=== PATIENT | female | born 1955 | race Native Hawaiian/Other Pacific Islander ===

== ENCOUNTER → 2016-08-23 | Outpatient (CLI) | payer OTHER ==
[~2016-08-23] MED LIST: IOPAMIDOL (ISOVUE-300) 100 ML BTL IV ONE
== END ==
LOC: FIMAGING 13:17
PROVIDERS: ATTEND Internal Medicine Hematology & Oncology
DX: R91.8 Other nonspecific abnormal finding of lung field (principal); S32.010A Wedge compression fracture of first lumbar vertebra, initial encounter for closed fracture; C79.51 Secondary malignant neoplasm of bone; C54.1 Malignant neoplasm of endometrium
CPT/HCPCS: Q9967

== ENCOUNTER → 2016-09-13 | Outpatient (CLI) | payer OTHER ==
[~2016-09-13] MED LIST changes: +GADOBUTROL 10 ML VIAL IVP ONE; -IOPAMIDOL (ISOVUE-300) 100 ML BTL IV ONE
== END ==
LOC: FIMAGING 14:11
PROVIDERS: ATTEND Internal Medicine Hematology & Oncology
DX: M48.56XA Collapsed vertebra, not elsewhere classified, lumbar region, initial encounter for fracture (principal); M48.06 Spinal stenosis, lumbar region; C54.1 Malignant neoplasm of endometrium
CPT/HCPCS: A9585

== ENCOUNTER 2016-09-16 09:32 | Inpatient (IN) | payer OTHER ==
[2016-09-16] MEDS ORDERED: DEXAMETHASONE 10 MG/ML VIAL IVP ONE (09:43)
[2016-09-16] MEDS ORDERED: ONDANSETRON 4 MG/2 ML VIAL ONE (09:51)
[2016-09-16] MEDS ORDERED: HYDROmorphONE/DILAUDID 1 MG/ML SYR IVP ONE ×2 (09:54→19:00)
[2016-09-16] MEDS ORDERED: ONDANSETRON 4 MG/2 ML VIAL IVP ONE (09:54)
--- NOTE | 2016-09-16 09:58 | EDPHY ---
HPI/HX/ROS/PE/MDM Narrative: CHIEF COMPLAINT: Severe back pain HPI: The patient is a 61-year-old female with a history of metastatic uterine cancer with known metastatic lesions throughout the spine. Her primary issue has been at an L1 compression fracture that is pathologic with some retropulsion of bone. Her goal has been to treat this nonsurgically. Last night she developed severe intractable pain in this area with radiation to her right hip. She denies bowel or bladder incontinence and denies new motor or sensory changes. She contacted her oncologist who sent her to the ER for treatment and admission. REVIEW OF SYSTEMS: Aside from elements discussed in the HPI, a comprehensive 10-point review of systems was reviewed and is negative. PMH: Includes metastatic uterine cancer with pathologic spine fractures. SOCIAL HISTORY: . Denies alcohol or drug abuse. PHYSICAL EXAM: General:Patient is alert, appears in significant pain. She appears somewhat chronically ill. ENT:Eyes are normal to inspection. ENT inspection normal. Neck: Normal inspection. Full range of motion. Respiratory:No respiratory distress. Breath sounds normal bilaterally. Cardiovascular: Regular rate and rhythm. Strong peripheral pulses. Normal cap refill. Abdomen:The abdomen is nontender to palpation. There are no peritoneal signs. There are normal bowel sounds. Back: Normal to inspection. No tenderness to palpation. Skin: Normal color. No rash. Warm and dry. Extremities: Normal appearance. Full range of motion. Neuro: Oriented x3. Normal motor function. Normal sensory function. 5/5 strength to bilateral lower extremities including dorsiflexion and plantar flexion. ED Course: Consulted Dr. Humaira Morocho from Neurosurgery at 10:00 a.m.. MDM: This patient presents with severe back pain in the setting of known pathologic fracture/metastasis. She currently has no incontinence and no saddle anesthesia so I doubt cauda equina syndrome. She has been reluctant to pursue surgical treatment. Due to debilitating pain, she will require admission for pain control and NSG evaluation. General Time Seen by Provider: 09/16/16 09:40 Initial Vital Signs: Initial Vital Signs Temperature (C) 36.6 C 09/16/16 09:37 Heart Rate 79 09/16/16 09:37 Respiratory Rate 20 09/16/16 09:37 Blood Pressure 165/95 H 09/16/16 09:37 O2 Sat (%) 99 09/16/16 09:37 O2 Delivery Mode Nasal Cannula O2 (L/minute) 2 Allergies/Adverse Reactions: amoxicillin trihydrate [From Augmentin] Allergy (Intermediate, Verified 09:33) BLEEDING, HIVES morphine Allergy (Intermediate, Verified 09/16/16 09:33) dyspnea, flushing potassium clavulanate [From Augmentin] Allergy (Intermediate, Verified 09/16/16 09:33) BLEEDING, HIVES lactose Allergy (Mild, Verified 09/16/16 09:33) GI UPSET acetaminophen [From Percocet] Allergy (Verified 09/16/16 09:33) erythromycin base [Erythromycin Base] Allergy (Verified 09/16/16 09:33) oxycodone Allergy (Verified 09/16/16 09:33) oxycodone HCl [From Percocet] Allergy (Verified 09/16/16 09:33) Penicillins Allergy (Verified 09/16/16 09:36) Sulfa (Sulfonamide Antibiotics) Allergy (Verified 09/16/16 09:36) TAPE Allergy (Intermediate, Uncoded 04/09/14 13:10) BLISTERS BETADINE Allergy (Mild, Uncoded 04/09/14 13:10) Rash EGGPLANT Allergy (Mild, Uncoded 04/09/14 13:10) Hives IODINE CONTRAST Allergy (Mild, Uncoded 04/09/14 13:10) HIVES, ITCHY SHRIMP Allergy (Mild, Uncoded 04/09/14 13:10) Hives morph Allergy (Uncoded 06/05/14 13:45) morphine Allergy (Uncoded 06/05/14 13:45) Home Medications: Medication Instructions Recorded Acetaminophen [Tylenol ES 500 mg 500 mg PO Q6 PRN 09/16/16 (*)] Gabapentin [Neurontin 300 MG (*)] 300 mg PO BID 09/16/16 Hydrocodone/Acetaminophen [Wilton 2 each PO Q4 PRN 09/16/16 5/325 (*)] Levalbuterol 1.25 mg [Xopenex 1.25 mg IH DAILY PRN 09/16/16 1.25MG Neb (*)] Losartan Potassium [Cozaar] 100 mg PO HS 09/16/16 Metoprolol Succinate Xr [Toprol Xl 100 mg PO DAILY 09/16/16 100 mg (*)] diphenhydrAMINE HCL [Diphen] 25 - 50 mg PO HS 09/16/16 Departure - Departure Disposition: [facility] Inpatient Acute Clinical Impression: Back pain, Uterine cancer Condition: Fair
[2016-09-16 10:17] LABS: % IMMATURE GRANULYOCYTES 0.7 % (0.0-1.1); ABSOLUTE IMMATURE GRANULOCYTES 0.14 10^3/uL (0.00-0.10); ADD DIFF? NO; ADD MORPH? NO; ADD SCAN? NO; ATYPICAL LYMPHOCYTE FLAG 20 (0-99); FRAGMENT RBC FLAG 0 (0-99); HEMOGLOBIN 11.1 g/dL (12.6-16.3); LEFT SHIFT FLG 0 (0-99); LIPEMIA HEMOLYSIS FLAG 80 (0-99); MEAN CELL HEMOGLOBIN 30.4 pg (27.9-34.1); MEAN CELL HEMOGLOBIN CONCENTR. 32.6 g/dL (32.4-36.7); MEAN CELL VOLUME 93.2 fL (81.5-99.8); MEAN PLATELET VOLUME 8.7 fL (8.7-11.7); PLATELET CLUMPS FLAG 0 (0-99); PLATELET COUNT 381 10^3/uL (150-400); RED BLOOD CELL COUNT 3.65 10^6/uL (4.18-5.33); RED CELL DISTRIBUTION WIDTH 16.1 % (11.5-15.2)
[2016-09-16 10:57] LABS: CALCIUM 9.3 mg/dL (8.5-10.4); CARBON DIOXIDE 29 mEq/l (22-31); CHLORIDE 99 mEq/L (97-110); CREATININE 0.6 mg/dL (0.6-1.0); GLOMERULAR FILTRATION RATE > 60; GLUCOSE 154 mg/dL (70-100); SODIUM 140 mEq/L (134-144)
[2016-09-16 11:14] LABS: ANION GAP 12 mEq/L (8-16); POTASSIUM 3.3 mEq/L (3.5-5.2)
[2016-09-16] MEDS ORDERED: ONDANSETRON DISINTEGRATING 4 MG TAB PO PRN (11:42)
--- NOTE | 2016-09-16 11:52 | GCON ---
[f rep st] CONSULTATION DATE OF CONSULTATION: 09/16/2016 TIME OF CONSULTATION: 10:30 a.m. HOSPITAL COURSE HISTORY AND MAJOR MEDICAL FINDINGS: The patient is a 61-year- old female with a history of metastatic uterine cancer and known metastatic lesions throughout her spine. She has a known prior L1 compression fracture and recently saw Dr. Giovani Barriga for evaluation. A brace was ordered as patient really wanted to move forward with conservative management. But when the pain got unbearable she presented to [facility] emergency room. She had a little bit of pain that radiates into her right hip but denies any other radicular pain, any numbness, tingling, pain or weakness in her lower legs. Denies any loss of bowel or bladder control. She has been taking Buckingham 10/325, as well as gabapentin at home and states that this is no longer helping. She does have a history of Tylenol toxicity causing tenderness. as well REVIEW OF SYSTEMS: Review of systems is negative other than what is stated in the HPI. Please see pertinent negatives and pertinent positives. PAST MEDICAL HISTORY: Significant for metastatic uterine cancer to both her lungs and her bones. History of hypertension. History of hyperthyroidism. History of migraines. PAST SURGICAL HISTORY: Significant for a total abdominal hysterectomy, history of a bilateral salpingo-oophorectomy. SOCIAL HISTORY: Patient does not smoke or drink any alcohol. 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 FAMILY HISTORY: Significant for 2 aunts with prior endometrial cancer and a grandfather and a cousin with colon cancer. HOME MEDICATIONS: Include Advair inhaler, Benadryl and Buckingham 10/325,. ALLERGIES: Significant for amoxicillin, morphine but she states she does tolerate Dilaudid, potassium, lactulose, acetaminophen has caused Tylenol toxicity before in the past so just tolerated at small quantities, erythromycin , oxycodone, penicillin, sulfa, tape, Betadine, eggplant, iodine, shrimp. PHYSICAL EXAM: VITAL SIGNS: Temp 36.6, heart rate is 79, respiratory rate is 20, BP is 165/95. She is 99% on room air. GENERAL: Patient in no acute distress. She is alert and oriented x3. Answers questions appropriately. Affect is appropriate for the given situation. NEUROLOGIC: Cranial nerves 2- 12 are grossly intact. EOMI and PERRLA. The patient is 5/5 and equal in her bilateral upper and bilateral lower extremities including her biceps, triceps, wrist flexors, extensors, interossei, intrinsic dock pumper, iliopsoas, hamstrings quadriceps, plantar flexion, dorsiflexion, EHL. Sensation is intact in bilateral upper and bilateral lower extremities. DIAGNOSTIC REVIEW: Review patient underwent a lumbar spine MRI on September 12 which demonstrated pathological compression fracture with retropulsion at L1. ASSESSMENT AND PLAN: The patient is a 61-year-old female, who has a known history of metastatic ovarian cancer who has an L1 compression fracture that has attempted conservative care but she continues to have worsening pain. At this point in time, the patient was seen both by Dr. Rouse and myself in the Emergency Room and we have recommended her undergoing a new MRI to look for other subtle fractures. She will be admitted to the medicine service for optimization of pain management, as patient wants to take the most conservative approach as possible. We do recommend increasing her pain management. The patient has tolerated Dilaudid okay in the past and p.o. Dilaudid may be a good option for her. Additionally she may be having increased muscle spasms and would recommend putting her on a muscle relaxant at this time. The patient is to be up and out of bed. Would recommend a brace. Would recommend [facility] [employer] to come see the patient as the patient states the brace is very cumbersome. If the patient has any change in neurologic or motor exam, please notify Neurosurgery. /[id number]/MODL MTDD
[2016-09-16] MEDS: HYDROmorphONE/DILAUDID 1 MG/ML SYR IVP PRN ×3 (11:56→23:29)
[2016-09-16] MEDS ORDERED: DEXAMETHASONE 4 MG/ML VIAL IVP SCH (12:00)
[2016-09-16] MEDS ORDERED: POTASSIUM CL 20 MEQ/15 ML UDCUP PO ONE ×2 (12:13→14:30)
[2016-09-16] MEDS: ONDANSETRON 4 MG/2 ML VIAL IVP PRN ×2 (12:45→18:25)
[2016-09-16] MEDS ORDERED: LEVALBUTEROL 1.25 MG/3 ML DEYVIAL IH PRN (14:23)
[2016-09-16 14:50] LABS: COLOR YELLOW; LEUKOCYTE ESTERASE,URINE 1+ (NEGATIVE); NITRITE,URINE NEGATIVE (NEGATIVE)
--- NOTE | 2016-09-16 14:59 | SOAPPROG ---
SOAP Progress Note Assessment/Plan: Assessment: 1.) Compression fracture at L1 with bony retropulsion causing compromise at Conus Medullaris with severe debilitating pain. Considering Neurosurgical procedure with L1 Kyphoplasty for pain relief and stabilization 2.) Endometrial Cancer - initial diagnosis- 02/03/2005, [id number], FIGA staging 1A , Endometriod Histology, R0 resection with ANAND, BSO and pelvic lymphadenectomy with curative intent, margins (+). Metastatic dis. (+)11/29- S/P 6 cycles Carbo/Paclitaxel, then single agent Paclitaxel 05/31-10/30. Doxil for dis. progression 04/01-08/03 Letrozole 08/31- Paclitaxel 08/04- Carboplatin 04/03 Doxorubicin 06/03- 09/02, last dose 08/22/16 Known skeletal and lung metastases. Paclitaxel related Peripheral Neuropathy Tx related Myelosuppression Plan: 1.) Bedrest 2.) Analgesia with short acting narcotic analgesics 3.) Steroids as adjunct for analgesic relief 4.) Appreciate Neurosurgery evaluation and management. See their Consultation today 5.) Follow VS+ Labs + sx. 6.) Pt contemplating Kyphoplasty at L1 with this admission. 7.) May need Rehab facility transfer to maximize recovery. 8.) PT/OT input when stable. 09/16/16 14:59 Subjective: Worsening back pain from L1 compression pathologic fracture, some relief with Dilaudid, as admitted from ER today. Objective: Looks fairly uncomfortable secondary to pain VSS, afebrile HEENT- anicteric, alopecia, PERRLA, EOMI, no oral lesions Neck- supple, no LN enlargement Chest- L mediport accessed/NT, clear bilat. anteriorly CVS- RSR, no extra HS ABD- soft, NT, no mass or HSM, BS+ EXT- no edema, normal muscle bulk, skin intact Vital Signs Temp Pulse Resp BP Pulse Ox 36.6 C 84 18 155/84 H 98 09/16/16 12:53 09/16/16 12:53 09/16/16 12:53 09/16/16 12:53 09/16/16 12:53 09/15/16 09/16/16 09/17/16 05:59 05:59 05:59 Output Total 500 Balance -500 ICD10 Worksheet Patient Problems: Problems Problem Status Onset Back pain Acute Uterine cancer Acute Acute respiratory failure Acute
[2016-09-16 15:10] LABS: MUCUS TRACE /lpf (NONE-1+); WBC,URINE 25-50 /hpf (0-3)
[2016-09-16 15:14] LABS: BACTERIA NONE SEEN /hpf (NONE SEEN)
[2016-09-16] MEDS: DEXAMETHASONE 4 MG/ML VIAL IVP SCH ×2 (15:23→22:04)
[2016-09-16] MEDS: METOPROLOL SUCCINATE XR 100 MG TAB PO SCH (15:23)
--- NOTE | 2016-09-16 15:48 | GHP ---
[f rep st] HISTORY AND PHYSICAL DATE OF ADMISSION: 09/16/2016 CHIEF COMPLAINT: Intractable back pain. HISTORY OF PRESENT ILLNESS: Patient is a 61-year-old female with history of metastatic uterine canc er with known spinal metastatic lesions. She recently underwent MRI that demonstrated a pathologic fracture at L1 with neural canal stenosis at the conus medullaris. Her ultimate goal was to treat t his nonsurgically with conservative measures. Last night, she developed severe intractable pain in the right lower back with radiation to her hip. She describes this as sharp and greater than 10. T he pain was so painful that she could not bear weight and had to have her fully assist her t o the restroom. She denies any focal weakness, bowel or bladder incontinence. No new numbness. She has been taking Vicodin 10/325 mg q.4 hours without relief of pain, thus, presented to the emerg ency room. She was also recently started on gabapentin twice a day for neuropathy. Denies fevers, chills, or sweats. No nausea, vomiting, or diarrhea. No dysuria. REVIEW OF SYSTEMS: I completed a 10-point review of systems, negative except as noted in HPI. PAST MEDICAL HISTORY: 1. Metastatic uterine cancer with metastatic disease to spine and lung. Initially diagnosed in 5, underwent hysterectomy. 2013 recurrence with metastases to the lungs. 2. Chronic hypoxemic respiratory failure. 3. Hypertension. 4. Prior hypothyroidism but has been off meds for greater than 10 years. PAST SURGICAL HISTORY: 1. Hysterectomy. 2. Lung biopsy. 3. Sinus surgery. SOCIAL HISTORY: Lives with her in [place]. Has been 30 years. Has 2 kids. No illicits, alcohol, or tobacco. FAMILY HISTORY: CAD, hypertension, diabetes, uterine cancer. MEDICATIONS: Tylenol p.r.n.; gabapentin 300 mg b.i.d.; Toprol-XL 100 mg daily; losartan 100 mg concepcion y; Xopenex 1.25 mg nebs p.r.n.; Fayette 10/325 p.o. q.4 hours p.r.n.; and Benadryl p.r.n. ALLERGIES: Amoxicillin, potassium clavulanate, lactose, Tylenol, erythromycin, oxycodone, penicilli n, sulfa, tape, Betadine, eggplant, iodine contrast, shrimp, morphine. PHYSICAL EXAMINATION: VITAL SIGNS: Temperature 36.6, blood pressure 155/84, heart rate 80s, respir ation 18, 98% on 2 L. GENERAL: Mildly distressed secondary to pain, fatigued. HEENT: PERRLA. EO MA. Moist mucous membranes. CV : Regular rate and rhythm. No murmurs, gallops, or rubs. LUNGS: Clear to auscultation bilaterally. ABDOMEN: Soft, nontender, nondistended. Positive bowel sounds . : No suprapubic or CVA tenderness. MUSCULOSKELETAL: 5/5 upper and lower extremity strength. Sensation is intact upper and lower extremities. She has some decreased sensation bottom of feet w hich she states is chronic. PSYCH: Alert and oriented x3, very pleasant. LABORATORY DATA: WBC 20, hemoglobin 11, hematocrit 34, platelets 381. Sodium 140, potassium 3.3, c hloride 99, carbon dioxide 29, BUN 10, creatinine 0.6. Glucose 154. Calcium 9.3. UA is pending. IMAGING DATA: 1. Chest x-ray, personally reviewed by me, no evidence of effusion or opacity. 2. Reviewed MRI, 09/13/16, shows severe pathologic compression of L1 associated with central neural canal stenosis at the level of the conus medullaris. This appears similar to prior scan on August 23. ASSESSMENT AND PLAN: 1. Acute pain crisis: Secondary to L1 pathologic fracture. Patient is followed by Neurosurgery an d had been recommended kyphoplasty, which she initially declined and wanted to trial conservative ma nagement. Patient was again seen by Neurosurgery at this time. Will treat acute pain with p.r.n. D ilaudid and dexamethasone. Patient would like more time to determine if she would like to proceed w ith kyphoplasty. 2. Accelerated hypertension: Pain is likely contributing. Will treat this, along with continuing her home medications. 3. Hypokalemia: Replete. 4. Peripheral neuropathy: Secondary to chemotherapy. Continue gabapentin. 5. Chronic hypoxemic respiratory failure: Secondary to pulmonary metastatic disease. No evidence of infection on x-ray. Patient is afebrile. 6. Leukocytosis: WBC is elevated to 20, suspect this is secondary inflammation plus/minus steroids . UA pending. Chest x-ray is negative for infection. She is afebrile. 7. Metastatic uterine cancer: Initially diagnosed in 2004 and underwent hysterectomy at [facility]. She had recurrence 2012 with metastatic disease to lung. She is currently followed by Dr. Foster and receiving doxorubicin, last dose being August 22. Appreciate Dr. Means's consultation wh ile here in the hospital. 8. Constipation: Senna. 9. Diet: Regular. 10. Deep vein thrombosis prophylaxis. Low risk. DISPOSITION: Patient warrants inpatient admission given the intractable pain warranting IV opioids, steroids, and further consultation by Neurosurgery and Oncology. /[id number]/MODL
[2016-09-16] MEDS ORDERED: POTASSIUM CL 20 MEQ TAB PO ONE (16:11)
[2016-09-16] MEDS: HYDROmorphONE/DILAUDID 2 MG TAB PO PRN ×2 (16:43→20:33)
[2016-09-16] MEDS ORDERED: MAGNESIUM HYDROXIDE 30 ML UDCUP PO PRN (16:55)
[2016-09-16] MEDS ORDERED: LACTULOSE 20 GM/30 ML UDCUP PO PRN (16:55)
[2016-09-16] MEDS ORDERED: BISACODYL 10 MG SUPP PR PRN (16:55)
[2016-09-16] MEDS: SENNOSIDES 1 TAB PO SCH (17:19)
[2016-09-16] MEDS: LOSARTAN POTASSIUM 50 MG TAB PO SCH (20:26)
[2016-09-16] MEDS: GABAPENTIN 300 MG CAP PO SCH (20:27)
[2016-09-16] MEDS: diphenhydrAMINE 25 MG CAP PO PRN (23:30)
[2016-09-17] MEDS: HYDROmorphONE/DILAUDID 2 MG TAB PO PRN ×2 (00:25→03:57)
[2016-09-17] MEDS: DEXAMETHASONE 4 MG/ML VIAL IVP SCH ×3 (03:58→16:27)
[2016-09-17 05:48] LABS: % IMMATURE GRANULYOCYTES 0.6 % (0.0-1.1); ABSOLUTE IMMATURE GRANULOCYTES 0.15 10^3/uL (0.00-0.10); ADD DIFF? NO; ADD MORPH? NO; ADD SCAN? NO; ATYPICAL LYMPHOCYTE FLAG 10 (0-99); FRAGMENT RBC FLAG 0 (0-99); HEMATOCRIT 30.6 % (38.0-47.0); HEMOGLOBIN 10.2 g/dL (12.6-16.3); LEFT SHIFT FLG 0 (0-99); LIPEMIA HEMOLYSIS FLAG 80 (0-99); MEAN CELL HEMOGLOBIN 31.2 pg (27.9-34.1); MEAN CELL HEMOGLOBIN CONCENTR. 33.3 g/dL (32.4-36.7); MEAN CELL VOLUME 93.6 fL (81.5-99.8); MEAN PLATELET VOLUME 8.8 fL (8.7-11.7); PLATELET CLUMPS FLAG 0 (0-99); PLATELET COUNT 348 10^3/uL (150-400); RED BLOOD CELL COUNT 3.27 10^6/uL (4.18-5.33); RED CELL DISTRIBUTION WIDTH 15.8 % (11.5-15.2)
[2016-09-17 06:27] LABS: ANION GAP 9 mEq/L (8-16); CALCIUM 9.2 mg/dL (8.5-10.4); CARBON DIOXIDE 31 mEq/l (22-31); CHLORIDE 98 mEq/L (97-110); CREATININE 0.6 mg/dL (0.6-1.0); GLOMERULAR FILTRATION RATE > 60; GLUCOSE 151 mg/dL (70-100); POTASSIUM 3.8 mEq/L (3.5-5.2); SODIUM 138 mEq/L (134-144)
[2016-09-17] MEDS: HYDROmorphONE/DILAUDID 1 MG/ML SYR IVP PRN ×3 (06:37→17:05)
[2016-09-17] MEDS ORDERED: NON-FORMULARY NEW DRUG (Losartan Potassium [Cozaar] 100 MG) PO SCH (09:00)
[2016-09-17] MEDS ORDERED: ENOXAPARIN 40 MG/0.4 ML SYR SC SCH (09:00)
[2016-09-17] MEDS ORDERED: SENNOSIDES 1 TAB PO SCH (09:00)
[2016-09-17] MEDS: SENNOSIDES 1 TAB PO SCH (09:43)
[2016-09-17] MEDS: GABAPENTIN 300 MG CAP PO SCH ×2 (09:43→16:30)
[2016-09-17] MEDS: METOPROLOL SUCCINATE XR 100 MG TAB PO SCH (09:51)
--- NOTE | 2016-09-17 11:14 | HOSPPROG ---
Hospitalist Progress Note Assessment/Plan: #Acute pain crisis: 2/2 pathologic fracture. -pain worse with movement. MRI T, L-spine today -increase PO and IV dilaudid. Add scheduled APAP, increase Gabapentin TID, Dex QID -NSGY thinks not amendable to kypohoplasty alone, will need laminectomy as well -would benefit from long-acting opioid, but allergy to oxy and morphine. I explained Fentanyl patch last option #Metastatic uterine cancer -followed by Dr. Foster. On Doxarubicin #Leukocytosis: steroids, inflammation. +UA, but no sxs. Check urine culture #Hypokalemia: resolved #Accelerated HTN: pain playing a role. Cont home BP meds #Diet: regular #DVt ppx: Lovenox #Disp: warrants inpatient admission with acute pain, IV opioids, NSGY evaluation # Subjective: pain now radiates to BL groin, perineum numb. No incontinence Objective: Vital Signs Temp Pulse Resp BP Pulse Ox 36.8 C 76 18 164/101 H 97 09/17/16 07:22 09/17/16 07:22 09/17/16 07:22 09/17/16 07:22 09/17/16 07:22 Laboratory Results 09/17/16 05:00 09/17/16 05:00 09/16/16 09/17/16 09/18/16 05:59 05:59 05:59 Intake Total 1241 Output Total 1400 300 Balance -159 -300 - Physical Exam Constitutional: no apparent distress Eyes: PERRL Ears, Nose, Mouth, Throat: moist mucous membranes, hearing normal Cardiovascular: regular rate and rhythym, no murmur, rub, or gallop Respiratory: no respiratory distress Gastrointestinal: normoactive bowel sounds, soft, non-tender abdomen Genitourinary: no bladder tenderness Skin: warm Musculoskeletal: full muscle strength Neurologic: AAOx3, CN II-XII Intact ICD10 Worksheet Patient Problems: Problems Problem Status Onset Back pain Acute Uterine cancer Acute Acute respiratory failure Acute
--- NOTE | 2016-09-17 11:44 | SOAPPROG ---
SOAP Progress Note Assessment/Plan: Assessment: L1 patologic compression fx in setting of metastatic ovarian cancer with approximate 6 month prognosis -Will get MRI T and Lspine today to look for subtle bone mets and for possible surgical planning. Patient has new perineal numbness onset 1 hour ago after getting OOB to bedside commode and new severe groin pain without weakness or incontinence. Discussed surgical options with the patient and her . At this point, she could choose nonsurgical management but she is failing and has new neurologic complaints. Discussed laminectomy and open kyphoplasty as kyphoplasty alone with significant retropulsion would be contraindicated. Discussed risks including further destabilization requiring fusion doen the line vs laminectomy, fusion and kyphoplasty as a more definitive procedure. She would like to consider her options while getting the new MRI's. Please call for change in neuro status. We will follow imaging and make a plan moving forward based on MRI and patient wishes. Plan: 09/17/16 11:40 Subjective: Patient states she has new and different pain this morning while going to the toilet. She eveloped severe stabbing groin pain and new groin numbness. She denies incontinence or weakness. She states pain is intolerable and is considering surgery but agrees with plan of new MRI first. Objective: Vital Signs Temp Pulse Resp BP Pulse Ox 36.8 C 76 18 164/101 H 97 09/17/16 07:22 09/17/16 07:22 09/17/16 07:22 09/17/16 07:22 09/17/16 07:22 Laboratory Results 09/17/16 05:00 09/17/16 05:00 09/16/16 09/17/16 09/18/16 05:59 05:59 05:59 Intake Total 1241 Output Total 1400 300 Balance -159 -300 AandOx3, PERRL, EOMI, MAEWx4 5/5, +2/4 patellar and achilles - Time Spent With Patient Time Spent With Patient: 90 minutes - Pending Discharge Pending Discharge Within 24 Hours: No Pending Discharge Within 48 Hours: No ICD10 Worksheet Patient Problems: Problems Problem Status Onset Back pain Acute Uterine cancer Acute Acute respiratory failure Acute
[2016-09-17] MEDS: HYDROmorphONE/DILAUDID 4 MG TAB PO PRN (14:09)
[2016-09-17] MEDS ORDERED: GADOBUTROL 10 ML VIAL IVP ONE (15:03)
[2016-09-17] MEDS: ACETAMINOPHEN 500 MG TAB PO SCH (16:29)
[2016-09-17] MEDS ORDERED: THROMBIN (BOVINE) 5,000 UNIT VIAL TP ONE (16:48)
[2016-09-17] MEDS ORDERED: BACITRACIN 50,000 UNITS/10 ML SYR IRR ONE (16:49)
[2016-09-17] MEDS ORDERED: BUPIVACAINE/EPI 0.25% 30 ML SDV ONE ×2 (16:49→16:51)
[2016-09-17] MEDS ORDERED: IOPAMIDOL (ISOVUE-M 300) 15 ML VIAL IV ONE (16:49)
[2016-09-17] MEDS ORDERED: VANCOMYCIN HCL/NORMAL SALINE 250 ML IV ONE (17:30)
[2016-09-17] MEDS ORDERED: MIDAZOLAM 2 MG/2 ML VIAL ONE (17:38)
[2016-09-17] MEDS ORDERED: REMIFENTANIL HCL 1 MG VIAL ONE (17:39)
[2016-09-17] MEDS ORDERED: PROPOFOL/EMULSION 500 MG/50 ML BOTTLE IV ONE ×2 (17:40→17:48)
[2016-09-17] MEDS ORDERED: fentaNYL 100 MCG/2 ML INJ ONE ×2 (17:40→21:26)
[2016-09-17] MEDS ORDERED: DEXAMETHASONE 4 MG/ML VIAL ONE (17:46)
[2016-09-17] MEDS ORDERED: PHENYLEPHRINE HCL 100 MCG/ML SYR ONE (17:47)
[2016-09-17] MEDS ORDERED: LIDOCAINE 2% 5 ML SDV ONE (17:49)
[2016-09-17] MEDS ORDERED: AMINOCAPROIC ACID IV ONE (18:00)
[2016-09-17] MEDS ORDERED: D5W IV ONE (18:00)
[2016-09-17] MEDS ORDERED: HYDROmorphONE/DILAUDID 2 MG/ML INJ ONE (20:06)
[2016-09-17] MEDS ORDERED: DIAZEPAM 5 MG TAB PO PRN (20:52)
[2016-09-17] MEDS ORDERED: METHOCARBAMOL 750 MG TAB PO PRN (20:56)
--- NOTE | 2016-09-17 21:40 | GOP ---
[f rep st] OPERATIVE REPORT DATE OF OPERATION: 09/17/2016 SURGEON: Humaira Morocho DO NEUROSURGEON: Humaira Morocho DO. SALES RECEPTIONIST: Gladys Sebastian. PREOPERATIVE DIAGNOSIS: Spinal cord injury secondary to pathologic compression fracture of L1 with retropulsion and severe stenosis. POSTOPERATIVE DIAGNOSIS: Metastatic mucinous adenocarcinoma. Postoperative diagnosis same. PROCEDURE PERFORMED: 1. T12-L1, L1-L2 laminectomy. T12-L1, L1-L2 posterior lateral fusion T12 and L1 bilateral pedicle screws. 2. Stealth stereotaxis. 3. Autograft. 4. Neuro monitoring. FINDINGS: SPECIMENS: None. ESTIMATED BLOOD LOSS: 50 mL. INDICATIONS: A 61-year-old female with pathologic L1 compression fracture from mucinous adenocarcin luis who had worsening pain, and this morning had a worsening episode where she developed perineal nu mbness and severe groin pain that was new after transitioning to a bedside commode. Repeat MRI reve als new metastases without fracture at multiple thoracic levels. However, the L1 fracture that was retropulsed had significantly worsened with conus edema. She elected to move forward with urgent em ergent decompression and fusion. DESCRIPTION OF PROCEDURE: She was identified. Consented sites were marked brought to the operating room, anesthetized under general trachea anesthesia, rolled onto the Marty table. All pressure p oints were appropriately padded. She was prepped and draped in usual sterile fashion. Incision was marked using 18-gauge spinal needle, counting up from the sacrum. The incision was anesthetized wi th 0.5% Marcaine with epinephrine. Incision was made with a 10 blade. Hemostasis was obtained with Bovie and bipolar cautery. We dissected down onto the laminae of T12, L1 and L2, and down around t he facet joint. I placed a Yojana and verified. When in appropriate position, placed a Amootoontronic S tealth frame, and performed a stereotactic spin starting down at L1 on the left. Used a Datalogix c awl to find the starting point, then tapped with the PowerEase, and then measured and placed a 5-0 x 50 mm screw on the left at L2. We then went up to T12 skipping the L1 fracture, and performed th e same procedure placing a 5.5 x 45 mm screw at T12 on the left. On the right, we went down to L2, and with the same stereotactic procedure placed a 6.5 x 55 mm screw. Before every screw was placed stereotactically, we used a ball-tip probe to verify there was good bone. We went up to T12 on the right, and placed a 5.5 x 40 mm screw. We stimmed all screws. All screws stimmed above 20. We per formed x-rays. They appear to be in good position. We performed a stereotactic spin. There were a couple of screws that were a little long, so I back those out to the appropriate length. We then m easured rods. I elected not to place any distraction, as bone quality and small pedicles were an is mike, so I placed two 70 mm Amootoontronic Solera rods. Locked them into place with a cap, and using the antitorque device, verified there was amber above and below on both sides. Again, this was a Bramasol Solera 4.75 screw system. We then used stereotaxis to locate the facet joints and drill out the facet joints at T12-L1 and L1-L2 bilaterally. Once this was performed, used Leksell to remove the s pinous process and lamina, and then used a high-speed drill to thin out the lamina entering the liga mentum flavum with a ball-tip probe. I then used 3 and 4 Kerrison to perform a complete laminectomy T12-L1 and L1-L2 decompressing completely bilaterally and widely until the thecal sac appeared well decompressed. Once it was well decompressed, we copiously irrigated with over 2 L of bacitracin in fused saline. Placed a crosslink just prior to the irrigation and locked into place using the torqu e wrench. We then placed the patient's own bone, which had been morselized, out into the facet join ts in the lateral recesses bilaterally. Trocar to drain out inferiorly, placed it in the subfascial space. Closed the fascia with 0-Vicryl pop-off, subcutaneous layer 2-0 Vicryl pop-off. The skin w as closed with 3-0 running nylon. Dressed with Xeroform gauze and a Tegaderm. Drains were sutured in with 2-0 Vicryl pop-off placed to bulb suction. Neuro monitoring remained stable. There were no complications. FLUID: 1500 mL crystalloid. URINE OUTPUT: 1150. DRAINS: One MARCUS in the subfascial space, bulb suction. COMPLICATIONS: None. /[id number]/MODL
--- NOTE | 2016-09-17 21:49 | POSTOPPROG ---
Post Op Note Date of Operation: 09/17/16 Surgeon: Humaira Morocho Alpine Patroller: Gladys Sebastian PA-C Anesthesia: GET(General Endotracheal) Pre-op Diagnosis: Fracture, stenosis Post-op Diagnosis: Fracture, stenosis Procedure: T12-L2 posterior screw fixation with laminectomy Inf/Abcess present in the surg proc area at time of surgery?: No Depth: Deep Incisional (Fascial) EBL: 50-100 Plan Plan: 61 yo female s/p T12-L2 PSF with laminectomy - neuro checks - pain control - MARCUS drain x 1 - postop x-rays pending - PT/OT - wear brace when OOB, TLSO - discontinue decadron Exam Awake. Alert Following commands, HIGGINS Incision c/d/i with dressing
[2016-09-18] MEDS: NS 1,000 ML IV SCH ×2 (00:05→12:30)
[2016-09-18] MEDS: LOSARTAN POTASSIUM 50 MG TAB PO SCH ×2 (00:05→20:16)
[2016-09-18] MEDS: ACETAMINOPHEN 500 MG TAB PO SCH ×5 (00:07→20:17)
[2016-09-18] MEDS: GABAPENTIN 300 MG CAP PO SCH ×4 (00:07→20:22)
[2016-09-18] MEDS: HYDROmorphONE/DILAUDID 4 MG TAB PO PRN ×2 (00:13→15:24)
[2016-09-18] MEDS: HYDROmorphONE/DILAUDID 1 MG/ML SYR IVP PRN ×3 (02:34→18:00)
[2016-09-18 05:17] LABS: HEMATOCRIT 28.8 % (38.0-47.0); HEMOGLOBIN 9.3 g/dL (12.6-16.3); MEAN CELL HEMOGLOBIN 30.7 pg (27.9-34.1); MEAN CELL HEMOGLOBIN CONCENTR. 32.3 g/dL (32.4-36.7); RED BLOOD CELL COUNT 3.03 10^6/uL (4.18-5.33); RED CELL DISTRIBUTION WIDTH 15.9 % (11.5-15.2)
[2016-09-18] MEDS ORDERED: VANCOMYCIN HCL/NORMAL SALINE 250 ML IV SCH (06:30)
[2016-09-18] MEDS: SENNOSIDES 1 TAB PO SCH (08:04)
[2016-09-18] MEDS: POLYETHYLENE GLYCOL 3350 17 GM PKT PO PRN (08:07)
[2016-09-18] MEDS: METOPROLOL SUCCINATE XR 100 MG TAB PO SCH (08:29)
--- NOTE | 2016-09-18 09:56 | HOSPPROG ---
Hospitalist Progress Note Assessment/Plan: #Acute pain crisis: min pain today. -2/2 pathologic fracture. s/p T12-L2 PSF, laminectomy -PRN Dilaudid. Dex stopped. Consider fentanyl patch #Constipation: passing flatus -bowel regimen #Pathologic fracture: MRI 09/17 showed compression of conus medullaris. Underwent PSF T12-L2 & laminectomy -appreciate NSGY assistance -out of bed with brace, PT/OT #Pyuria: culture with <10K CFUs. No abx warranted #Metastatic uterine cancer -followed by Dr. Foster. On Doxarubicin #Leukocytosis: steroids, inflammation. +UA, but no sxs. Check urine culture #Hypokalemia: resolved #Accelerated HTN: pain playing a role. Cont home BP meds #Diet: regular #DVt ppx: restart 09/20 per NSGY #Disp: warrants inpatient admission with acute pain, IV opioids, NSGY evaluation # Subjective: No longer having suprapubic, right leg pain. "feels like incisonal pain" Objective: Vital Signs Temp Pulse Resp BP Pulse Ox 37.0 C 72 16 160/66 H 97 09/18/16 07:19 09/18/16 07:19 09/18/16 07:19 09/18/16 07:19 09/18/16 07:19 Laboratory Results 09/18/16 04:18 09/17/16 05:00 09/17/16 09/18/16 09/19/16 05:59 05:59 05:59 Intake Total 1241 2415 450 Output Total 1400 2405 550 Balance -159 10 -100 - Physical Exam Constitutional: no apparent distress, other (smiling) Eyes: PERRL, anicteric sclera Ears, Nose, Mouth, Throat: moist mucous membranes, hearing normal Cardiovascular: regular rate and rhythym, no murmur, rub, or gallop Gastrointestinal: normoactive bowel sounds, soft, non-tender abdomen Genitourinary: no bladder fullness, no bladder tenderness Skin: warm Musculoskeletal: full muscle strength, other (surgical site on back dressed C/D/ I. MARCUS with serosang fluid) Neurologic: AAOx3, other (decreased sensation over BL feet with touch) Psychiatric: interacting appropriately ICD10 Worksheet Patient Problems: Problems Problem Status Onset Back pain Acute Uterine cancer Acute Acute respiratory failure Acute
--- NOTE | 2016-09-18 10:46 | SOAPPROG ---
SOAP Progress Note Assessment/Plan: Assessment: POD 1 s/p T12/L1, L1/2 laminectomy T12-L2 posterior fusion, new thoracic mets -postop xrays once brace arrives -oob with PT/OT in brace -continue MARCUS -Pain well controlled -Dispo once pain controlled on orals and drain out -Defer to oncology for overall treatment of her CA would need to wait 2-3 weeks before xrt 09/17/16 11:40 09/18/16 10:42 Subjective: Doing well. Acute preop pain now resolved with no further leg pain, perineal numbness unchanged but able to void. Rates incisional pain 09/26, await brace Objective: Vital Signs Temp Pulse Resp BP Pulse Ox 37.0 C 72 16 160/66 H 97 09/18/16 07:19 09/18/16 07:19 09/18/16 07:19 09/18/16 07:19 09/18/16 07:19 Laboratory Results 09/18/16 04:18 09/17/16 05:00 09/17/16 09/18/16 09/19/16 05:59 05:59 05:59 Intake Total 1241 2415 450 Output Total 1400 2405 550 Balance -159 10 -100 AandOx3, PERRL, EOMI, no facial asymmetry or tongue deviation, MAEWx 4 5, c/d/ i drain in place - Pending Discharge Pending Discharge Within 24 Hours: No ICD10 Worksheet Patient Problems: Problems Problem Status Onset Back pain Acute Uterine cancer Acute Acute respiratory failure Acute
--- NOTE | 2016-09-18 15:45 | SOAPPROG ---
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 Had surgery for a retropulsed fragment with compression of conus medullaris on 09/17/2016. Her pain has improved. She still has perineal numbness. She has had 3 BMs. She has a brace. She will need XRT to the involved area in 2-3 weeks. Will also need to consider XRT to T2, T6, T9 where other disease was seen on MRI. Her systemic options are limited. - Options for additional systemic therapy would include topotecan, etoposide, etc as single agents. Unfortunately the response rates are low (10-20% at best) and of short duration. We will also evaluate her eligibility for clinical trial. If her functional status improves sufficiently, this might include participation in a phase one trial in [place]. Best supportive care would also be a viable alternative. She and her will discuss this further as an outpatient with Dr. Foster. I made Dr. Foster aware of the recent events. Plan: - post-op care as you are doing - short rehab stay if appropriate - XRT to T12 area and possibly other involved levels in 2-3 weeks - Discuss systemic options an overall future arc of care with Dr. Verónica Foster as an outpatient 40 min spent with the patient/her and in data acquisition/image review/ coordination of care. Subjective: Pain present pre-op is much improved. Perineum still numb. Happy she had 3 bowel movements. Objective: Vital Signs Temp Pulse Resp BP Pulse Ox 36.4 C 70 16 130/57 H 100 09/18/16 12:12 09/18/16 12:12 09/18/16 12:12 09/18/16 12:12 09/18/16 12:12 Laboratory Results 09/18/16 04:18 09/17/16 05:00 09/16/16 09/17/16 09/18/16 23:59 23:59 23:59 Intake Total 1000 1941 1165 Output Total 1400 2255 1160 Balance -400 -314 5 Physical Exam - Physical Exam General Appearance: alert, moderate distress Skin: other (alopecia) Neuro/Psych: alert, oriented x 3, other (conversant and asking appropriate questions) ICD10 Worksheet Patient Problems: Problems Problem Status Onset Back pain Acute Uterine cancer Acute Acute respiratory failure Acute
[2016-09-18] MEDS: diphenhydrAMINE 25 MG CAP PO PRN (20:35)
[2016-09-19] MEDS: HYDROmorphONE/DILAUDID 1 MG/ML SYR IVP PRN (02:30)
[2016-09-19 05:05] LABS: HEMATOCRIT 29.2 % (38.0-47.0); HEMOGLOBIN 9.5 g/dL (12.6-16.3); MEAN CELL HEMOGLOBIN 30.4 pg (27.9-34.1); MEAN CELL HEMOGLOBIN CONCENTR. 32.5 g/dL (32.4-36.7); MEAN CELL VOLUME 93.3 fL (81.5-99.8); RED BLOOD CELL COUNT 3.13 10^6/uL (4.18-5.33); RED CELL DISTRIBUTION WIDTH 15.9 % (11.5-15.2)
[2016-09-19 05:16] LABS: ANION GAP 7 mEq/L (8-16); CALCIUM 8.8 mg/dL (8.5-10.4); CARBON DIOXIDE 33 mEq/l (22-31); CHLORIDE 97 mEq/L (97-110); CREATININE 0.7 mg/dL (0.6-1.0); GLOMERULAR FILTRATION RATE > 60; GLUCOSE 99 mg/dL (70-100); POTASSIUM 3.6 mEq/L (3.5-5.2); SODIUM 137 mEq/L (134-144)
[2016-09-19] MEDS: HYDROmorphONE/DILAUDID 4 MG TAB PO PRN ×5 (05:41→23:37)
--- NOTE | 2016-09-19 08:34 | NEUSURGPN ---
Assessment/Plan: POD 2 s/p T12/L1, L1/2 laminectomy T12-L2 posterior fusion, new thoracic mets -postop xrays pending -oob with PT/OT in brace -continue MARCUS -Pain well controlled -Dispo once pain controlled on orals and drain out -Defer to oncology for overall treatment of her CA would need to wait 2-3 weeks before xrt -Seen with Dr. Morocho Subjective: Groin numbness improving. Low back pain. Denies any new weakness, numbness or tingling Objective: NAD A&Ox3 MAEx4 5/5 and equal in BUE and BLE. Incisional dressing c/d/i. MARCUS drain serosanguineous Catheter Insertion Date: 09/17/16 - Physician Patient Seen by : [facility] Neurosurgery Physical Exam - Vitals, I&O, Labs I and O 09/18/16 09/19/16 09/20/16 05:59 05:59 05:59 Intake Total 2415 1700 Output Total 2405 2560 Balance 10 -860 Intake: Oral (ml) 850 IV Intake (ml) 1700 IV Infused (ml) 715 850 Ns 1,000 ml @ 75 mls/hr 450 600 IV CONT RICHARD Rx#: [id number] Vancomycin HCl/Normal 265 250 Saline 250 ml @ 250 mls/ hr IV Q12H RICHARD Rx#: [id number] Output: Urine (ml) 2050 2400 Bedside Commode 900 1850 Catheter 1150 550 Estimated Blood Loss (ml) 150 Wound Drainage (ml) 150 160 Back Marty Segura 150 160 Wound Drainage (ml) 55 Back Marty Segura 55 Other: Intake Quantity Yes Yes Sufficient Number of Voids Bedside Commode 1 Toilet 2 Number of Stools Bedside Commode 1 Toilet 2 Vital Signs Temp Pulse Resp BP Pulse Ox 37.3 C 110 H 15 95/68 L 90 L 09/19/16 08:00 09/19/16 08:00 09/19/16 08:00 09/19/16 08:00 09/19/16 08:00 Laboratory Results 09/19/16 04:22 09/19/16 04:22 ICD10 Worksheet Patient Problems: Problems Problem Status Onset Back pain Acute Uterine cancer Acute Acute respiratory failure Acute
[2016-09-19] MEDS: METOPROLOL SUCCINATE XR 100 MG TAB PO SCH (10:07)
[2016-09-19] MEDS: GABAPENTIN 300 MG CAP PO SCH ×3 (10:09→19:49)
[2016-09-19] MEDS: ACETAMINOPHEN 500 MG TAB PO PRN (10:09)
[2016-09-19] MEDS: SENNOSIDES 1 TAB PO SCH (10:10)
[2016-09-19] MEDS: ACETAMINOPHEN 500 MG TAB PO SCH (10:15)
[2016-09-19 11:18] LABS: ALBUMIN 2.9 g/dL (3.5-5.0); BILIRUBIN,TOTAL 0.5 mg/dL (0.1-1.4); BILIRUBIN-CONJUGATED 0.3 mg/dL (0.0-0.5); BILIRUBIN-UNCONJUGATED 0.2 mg/dL (0.0-1.1); TOTAL PROTEIN 6.1 g/dL (6.3-8.2)
--- NOTE | 2016-09-19 11:49 | SOAPPROG ---
SOAP Progress Note Assessment/Plan: Assessment: 1. Metastatic endometrial cancer, currently on 3rd line Rx with Doxil 2. Pathologic T12 fracture s/p decompression and laminectomy Plan: - continue post-op care - willl need RT 2-3 weeks after surgery. - can resume Doxil following RT. Sounds like the scans otherwise show that she is responding. Clinical trial would also be an option. 25 min w/ pt and in coordination of care. 09/19/16 11:47 Subjective: some pain in back post-op. Objective: chronically ill, NAD Lungs CTAB CV RRR no MGr Abd: +Bs NT ND Ext: 2+ edema Vital Signs Temp Pulse Resp BP Pulse Ox 37.3 C 110 H 15 95/68 L 90 L 09/19/16 08:00 09/19/16 08:00 09/19/16 08:00 09/19/16 08:00 09/19/16 08:00 Microbiology 09/17/16 12:15 Urine Culture - Final Urine,Clean Catch Strep Agalactiae Group B Four [place] Types Laboratory Results 09/19/16 04:22 09/19/16 04:22 09/18/16 09/19/16 09/20/16 05:59 05:59 05:59 Intake Total 2415 1700 Output Total 2405 2560 Balance 10 -860 ICD10 Worksheet Patient Problems: Problems Problem Status Onset Back pain Acute Uterine cancer Acute Acute respiratory failure Acute
[2016-09-19] MEDS: TEARS/DEXTRAN 70/HYPROMELLOSE 15 ML OPHT.BTL EACHEYE PRN (14:38)
--- NOTE | 2016-09-19 16:06 | HOSPPROG ---
Hospitalist Progress Note Assessment/Plan: Assessment: 61-year-old female presents with acute on chronic back pain in the setting of acute pathologic thoracic/lumbar compression fracture Plan: #Acute pathologic compression fracture thoracic/lumbar vertebrae. MRI 09/17 w/ comp of conus medullaris, s/p T12-L2 PSF, laminectomy -MARCUS drain in today, removal per NSGY -brace when OOB -PRN Dilaudid, cycle in PO and IV for breakthrough -add liver panel to ensure tylenol safe -off steroids #Constipation: passing flatus, bowel regimen #Asymptomatic bacturia: culture with <10K CFUs. No abx warranted #Metastatic uterine cancer: plan on XRT in several weeks, then doxil -followed by Dr. Foster #Hypokalemia: repleting #HTN: chronic, cont home Rx #Continuous opiate dependency:patient taking hydrocodone regularly at home, does not want to be on a sustained release Rx -cont on PO dilaudid, does not want hydrocodone 2/2 tylenol content #Diet: regular #DVt ppx: restart 09/20 per NSGY, SCDs #Code: full #Dispo: ADD 09/20, pending safe removal of drain Counseled patient regarding the plan as outlined above, as well as discussing her sequence of events leading to this presentation, notably back pain, increasing pain medication requirements, and then ultimate discovery of the compression fracture. Subjective: Patient very articulate about her past medical history and previous pain medication requirements Objective: Vital Signs Temp Pulse Resp BP Pulse Ox 37.1 C 91 15 144/69 H 95 09/19/16 12:00 09/19/16 12:00 09/19/16 12:00 09/19/16 12:00 09/19/16 12:00 Microbiology 09/17/16 12:15 Urine Culture - Final Urine,Clean Catch Strep Agalactiae Group B Four [place] Types Laboratory Results 09/19/16 04:22 09/19/16 04:22 09/18/16 09/19/16 09/20/16 05:59 05:59 05:59 Intake Total 2415 1700 Output Total 2405 2560 Balance 10 -860 - Physical Exam Constitutional: no apparent distress, appears nourished, not in pain Cardiovascular: regular rate and rhythym, no murmur, rub, or gallop Respiratory: no respiratory distress, no rales or rhonchi, clear to auscultation Gastrointestinal: normoactive bowel sounds, soft, non-tender abdomen, no palpable masses Neurologic: AAOx3, sensation intact bilaterally, No weakness (Motor 5/5 bilateral lower extremity) Psychiatric: interacting appropriately, not anxious, not encephalopathic, thought process linear ICD10 Worksheet Patient Problems: Problems Problem Status Onset Acute respiratory failure Acute Back pain Acute Uterine cancer Acute
[2016-09-19] MEDS: LOSARTAN POTASSIUM 50 MG TAB PO SCH (19:48)
[2016-09-20] MEDS: diphenhydrAMINE 25 MG CAP PO PRN (00:37)
[2016-09-20 04:48] LABS: % IMMATURE GRANULYOCYTES 0.9 % (0.0-1.1); ABSOLUTE IMMATURE GRANULOCYTES 0.15 10^3/uL (0.00-0.10); ADD DIFF? NO; ADD MORPH? NO; ADD SCAN? NO; ATYPICAL LYMPHOCYTE FLAG 20 (0-99); FRAGMENT RBC FLAG 0 (0-99); HEMATOCRIT 27.9 % (38.0-47.0); HEMOGLOBIN 9.3 g/dL (12.6-16.3); LEFT SHIFT FLG 10 (0-99); LIPEMIA HEMOLYSIS FLAG 80 (0-99); MEAN CELL HEMOGLOBIN 31.3 pg (27.9-34.1); MEAN CELL HEMOGLOBIN CONCENTR. 33.3 g/dL (32.4-36.7); MEAN CELL VOLUME 93.9 fL (81.5-99.8); PLATELET CLUMPS FLAG 0 (0-99); PLATELET COUNT 329 10^3/uL (150-400); RED BLOOD CELL COUNT 2.97 10^6/uL (4.18-5.33); RED CELL DISTRIBUTION WIDTH 15.8 % (11.5-15.2)
[2016-09-20 05:25] LABS: ANION GAP 8 mEq/L (8-16); CALCIUM 8.4 mg/dL (8.5-10.4); CARBON DIOXIDE 32 mEq/l (22-31); CHLORIDE 96 mEq/L (97-110); CREATININE 0.7 mg/dL (0.6-1.0); GLOMERULAR FILTRATION RATE > 60; GLUCOSE 121 mg/dL (70-100); POTASSIUM 3.4 mEq/L (3.5-5.2); SODIUM 136 mEq/L (134-144)
--- NOTE | 2016-09-20 07:43 | NEUSURGPN ---
Assessment/Plan: POD 3 s/p T12/L1, L1/2 laminectomy T12-L2 posterior fusion, new thoracic mets -postop xrays show well placed stable hardware -oob with PT/OT in brace -continue MARCUS, may remove later today -dysuria, re-check UA -Pain well controlled -Dispo once pain controlled on orals and drain out -Defer to oncology for overall treatment of her CA would need to wait 2-3 weeks before xrt -Discussed with Dr. Morocho Subjective: Pt resting in bed, c/o burning with urination Objective: AAOx3 NAD VSS MAEx4 Motor 5/5 BLE Incision dressed JPx1 Urinary Catheter in Place: No Catheter Insertion Date: 09/17/16 - Physician Discussed Patient with : Bailee Neurosurgery Physical Exam - Vitals, I&O, Labs I and O 09/19/16 09/20/16 09/21/16 05:59 05:59 05:59 Intake Total 1700 1050 Output Total 2560 650 Balance -860 400 Intake: Oral (ml) 850 1050 IV Infused (ml) 850 Ns 1,000 ml @ 75 mls/hr 600 IV CONT RICHARD Rx#: [id number] Vancomycin HCl/Normal 250 Saline 250 ml @ 250 mls/ hr IV Q12H RICHARD Rx#: [id number] Output: Urine (ml) 2400 600 Bedside Commode 1850 600 Catheter 550 Wound Drainage (ml) 160 50 Back Marty Segura 160 50 Other: Intake Quantity Yes Sufficient Number of Voids Bedside Commode 1 2 Toilet 2 Number of Stools Bedside Commode 1 Toilet 2 Microbiology 09/17/16 12:15 Urine Culture - Final Urine,Clean Catch Strep Agalactiae Group B Four [place] Types Vital Signs Temp Pulse Resp BP Pulse Ox 36.9 C 112 H 15 132/57 H 94 09/20/16 07:22 09/20/16 07:22 09/20/16 07:22 09/20/16 07:22 09/20/16 07:22 Laboratory Results 09/20/16 04:15 09/20/16 04:15 ICD10 Worksheet Patient Problems: Problems Problem Status Onset Back pain Acute Uterine cancer Acute Acute respiratory failure Acute
[2016-09-20] MEDS: FAMOTIDINE 20 MG TAB PO SCH ×2 (08:02→20:54)
[2016-09-20] MEDS: GABAPENTIN 300 MG CAP PO SCH ×2 (08:03→20:54)
[2016-09-20] MEDS: METOPROLOL SUCCINATE XR 100 MG TAB PO SCH (08:04)
[2016-09-20] MEDS: SENNOSIDES 1 TAB PO SCH ×2 (08:04→20:57)
[2016-09-20] MEDS: TEARS/DEXTRAN 70/HYPROMELLOSE 15 ML OPHT.BTL EACHEYE PRN ×2 (08:05→16:01)
[2016-09-20] MEDS: HYDROmorphONE/DILAUDID 4 MG TAB PO PRN ×4 (09:16→20:54)
[2016-09-20 11:19] LABS: COLOR YELLOW; LEUKOCYTE ESTERASE,URINE NEGATIVE (NEGATIVE); NITRITE,URINE NEGATIVE (NEGATIVE)
[2016-09-20] MEDS ORDERED: LIDOCAINE 2% JELLY 20 ML (UROJECT) UR ONE (12:35)
[2016-09-20] MEDS ORDERED: LIDOCAINE 2% JELLY 5 ML TUBE TP PRN (12:35)
[2016-09-20] MEDS ORDERED: MBX SOLN 30 ML BOTTLE PO PRN (14:25)
[2016-09-20] MEDS: ENOXAPARIN 40 MG/0.4 ML SYR SC SCH (14:39)
[2016-09-20] MEDS: ACETAMINOPHEN 500 MG TAB PO PRN (14:40)
[2016-09-20] MEDS: GABAPENTIN 100 MG CAP PO SCH ×2 (16:00→20:54)
--- NOTE | 2016-09-20 17:15 | HOSPPROG ---
Hospitalist Progress Note Assessment/Plan: Assessment: 61-year-old female presents with acute on chronic back pain in the setting of acute pathologic thoracic/lumbar compression fracture Plan: #Acute pathologic compression fracture thoracic/lumbar vertebrae. MRI 09/17 w/ comp of conus medullaris, s/p T12-L2 PSF, laminectomy -MARCUS drain to come out late today, removal per NSGY -brace when OOB -PRN Dilaudid, cycle in PO and IV for breakthrough -tylenol safe, liver panel wnl -off steroids -gabapentin resulting in lethargy, reducing dosage to 100/100/400, gauge effect -continues to have very limited mobility, planning on home care #Constipation: passing flatus, bowel regimen #Asymptomatic bacturia: culture with <10K CFUs. No abx warranted, UA remains neg -suspect the urethral pain is 2/2 hart cath irritation #Metastatic uterine cancer: plan on XRT in several weeks, then doxil -followed by Dr. Foster #Hypokalemia: repleting #HTN: chronic, cont home Rx #Continuous opiate dependency:patient taking hydrocodone regularly at home, does not want to be on a sustained release Rx -cont on PO dilaudid, does not want hydrocodone 2/2 tylenol content #Diet: regular #DVt ppx: restart 09/20 per NSGY, SCDs #Code: full #Dispo: ADD 09/20, pending safe removal of drain Counseled patient and family regarding safe discharge requirements, risky transfers, and need to reduce overly-sedating Rx. Subjective: Patient reports that she is feeling lethargic after receiving gabapentin, continues to experience dysuria, lower abdominal discomfort, reflux Objective: Vital Signs Temp Pulse Resp BP Pulse Ox 36.8 C 88 15 132/70 H 94 09/20/16 16:00 09/20/16 16:00 09/20/16 16:00 09/20/16 16:00 09/20/16 16:00 Laboratory Results 09/20/16 04:15 09/20/16 04:15 09/19/16 09/20/16 09/21/16 05:59 05:59 05:59 Intake Total 1700 1050 750 Output Total 2560 650 1000 Balance -860 400 -250 - Time Spent With Patient Time Spent with Patient: greater than 35 minutes Time Spent with Patient: Greater than 35 minutes spent on this patients care, greater than 50% of time spent counseling, educating, and coordinating care regarding the above mentioned plan. - Pending Discharge Pending Discharge Within 24 Hours: Yes Pending Discharge Date: 09/21/16 Pending Discharge Time: 11:00 - Physical Exam Constitutional: not in pain, chronically ill appearing, uncomfortable Cardiovascular: regular rate and rhythym, no murmur, rub, or gallop Respiratory: no respiratory distress, no rales or rhonchi, reduced air movement (Bilateral bases) Gastrointestinal: normoactive bowel sounds, soft, non-tender abdomen, no palpable masses Genitourinary: no bladder fullness, no bladder tenderness Neurologic: AAOx3, No facial droop Psychiatric: interacting appropriately, not anxious, not encephalopathic, thought process linear ICD10 Worksheet Patient Problems: Problems Problem Status Onset Acute respiratory failure Acute Back pain Acute Uterine cancer Acute
[2016-09-20] MEDS: LOSARTAN POTASSIUM 50 MG TAB PO SCH ×2 (20:54→20:58)
[2016-09-21] MEDS: diphenhydrAMINE 25 MG CAP PO PRN ×2 (01:16→09:11)
[2016-09-21] MEDS: HYDROmorphONE/DILAUDID 4 MG TAB PO PRN ×3 (01:16→19:47)
[2016-09-21 05:26] LABS: % IMMATURE GRANULYOCYTES 0.9 % (0.0-1.1); ABSOLUTE IMMATURE GRANULOCYTES 0.15 10^3/uL (0.00-0.10); ADD DIFF? NO; ADD MORPH? NO; ADD SCAN? NO; ATYPICAL LYMPHOCYTE FLAG 30 (0-99); FRAGMENT RBC FLAG 0 (0-99); HEMATOCRIT 27.5 % (38.0-47.0); HEMOGLOBIN 8.9 g/dL (12.6-16.3); LEFT SHIFT FLG 10 (0-99); LIPEMIA HEMOLYSIS FLAG 80 (0-99); MEAN CELL HEMOGLOBIN 30.4 pg (27.9-34.1); MEAN CELL HEMOGLOBIN CONCENTR. 32.4 g/dL (32.4-36.7); MEAN CELL VOLUME 93.9 fL (81.5-99.8); PLATELET CLUMPS FLAG 10 (0-99); PLATELET COUNT 353 10^3/uL (150-400); RED BLOOD CELL COUNT 2.93 10^6/uL (4.18-5.33); RED CELL DISTRIBUTION WIDTH 15.9 % (11.5-15.2)
[2016-09-21 05:39] LABS: ANION GAP 8 mEq/L (8-16); CALCIUM 8.6 mg/dL (8.5-10.4); CARBON DIOXIDE 31 mEq/l (22-31); CHLORIDE 96 mEq/L (97-110); CREATININE 0.7 mg/dL (0.6-1.0); GLOMERULAR FILTRATION RATE > 60; GLUCOSE 107 mg/dL (70-100); POTASSIUM 4.1 mEq/L (3.5-5.2); SODIUM 135 mEq/L (134-144)
--- NOTE | 2016-09-21 07:55 | SOAPPROG ---
SOAP Progress Note Assessment/Plan: Assessment: POD 4 s/p T12/L1, L1/2 laminectomy T12-L2 posterior fusion, new thoracic mets -postop xrays show well placed stable hardware -oob with PT/OT in brace -Pain moderateley controlled -Dispo once pain controlled on orals -Defer to oncology for overall treatment of her CA would need to wait 2-3 weeks before xrt Plan: DC planning for likely Home tomorrow Continue PT/OT 09/21/16 07:52 Subjective: lying in bed, awake, alert, pain moderately controlled. Reports new paresthesias in left anterior thigh with resolution of perineal numbness and resolution of "lancinating pain" in bilateral groin. Objective: Vital Signs Temp Pulse Resp BP Pulse Ox 37.0 C 85 16 129/52 H 97 09/21/16 07:39 09/21/16 07:39 09/21/16 07:39 09/21/16 07:39 09/21/16 07:39 Laboratory Results 09/21/16 04:27 09/21/16 04:27 09/20/16 09/21/16 09/22/16 05:59 05:59 05:59 Intake Total 1050 1050 450 Output Total 650 1700 Balance 400 -650 450 Incision: CDI Neuro: HIGGINS, Sens +LT ambulatory ICD10 Worksheet Patient Problems: Problems Problem Status Onset Back pain Acute Uterine cancer Acute Acute respiratory failure Acute
[2016-09-21] MEDS: METOPROLOL SUCCINATE XR 100 MG TAB PO SCH (08:59)
[2016-09-21] MEDS: SENNOSIDES 1 TAB PO SCH (08:59)
[2016-09-21] MEDS: GABAPENTIN 100 MG CAP PO SCH ×3 (08:59→21:41)
[2016-09-21] MEDS: FAMOTIDINE 20 MG TAB PO SCH ×2 (09:00→19:46)
[2016-09-21] MEDS: PANTOPRAZOLE SODIUM 40 MG TAB PO SCH (09:01)
[2016-09-21] MEDS: ACETAMINOPHEN 500 MG TAB PO PRN (11:42)
[2016-09-21] MEDS: ENOXAPARIN 40 MG/0.4 ML SYR SC SCH (16:21)
[2016-09-21] MEDS: POLYETHYLENE GLYCOL 3350 17 GM PKT PO PRN (17:21)
--- NOTE | 2016-09-21 17:39 | HOSPPROG ---
Hospitalist Progress Note Assessment/Plan: Assessment: 61-year-old female presents with acute on chronic back pain in the setting of acute pathologic thoracic/lumbar compression fracture Plan: #Acute pathologic compression fracture thoracic/lumbar vertebrae. MRI 09/17 w/ comp of conus medullaris, s/p T12-L2 PSF, laminectomy -MARCUS drain out -brace when OOB -cont to work on getting PO dilaudid PRIOR to therapy/transfers to prevent acute spikes in pain, which in turn limit mobility -tylenol safe, liver panel wnl -off steroids -gabapentin tolerated at 100/100/400 -continues to have very limited mobility, planning on home care #Constipation: passing flatus, bowel regimen, encouraged to take laxative if no BM by this PM #Asymptomatic bacturia: culture with <10K CFUs. No abx warranted, UA remains neg -suspect the urethral pain is 2/2 hart cath irritation #Metastatic uterine cancer: plan on XRT in several weeks, then doxil -followed by Dr. Foster #Hypokalemia: repleting #HTN: chronic, cont home Rx #Continuous opiate dependency:patient taking hydrocodone regularly at home, does not want to be on a sustained release Rx -cont on PO dilaudid, does not want hydrocodone 2/2 tylenol content #Diet: regular #DVt ppx: restart 09/20 per NSGY, SCDs #Code: full #Dispo: ADD 09/21, pending safe transfers and better control of pain. Subjective: Patient reports ongoing significant pain with transfers, has not had a bowel movement Objective: Vital Signs Temp Pulse Resp BP Pulse Ox 36.6 C 75 16 100/43 L 100 09/21/16 15:50 09/21/16 15:50 09/21/16 15:50 09/21/16 15:50 09/21/16 15:50 Laboratory Results 09/21/16 04:27 09/21/16 04:27 09/20/16 09/21/16 09/22/16 05:59 05:59 05:59 Intake Total 1050 1050 450 Output Total 650 1700 Balance 400 -650 450 - Pending Discharge Pending Discharge Within 24 Hours: Yes Pending Discharge Date: 09/22/16 Pending Discharge Time: 11:00 - Physical Exam Constitutional: no apparent distress, appears nourished, not in pain, No uncomfortable Ears, Nose, Mouth, Throat: moist mucous membranes, hearing normal, ears appear normal, no oral mucosal ulcers Cardiovascular: regular rate and rhythym, no murmur, rub, or gallop Respiratory: reduced air movement (Bilateral bases), No expiratory wheeze, No inspiratory crackles, No bronchial breath sounds, No respiratory distress Gastrointestinal: normoactive bowel sounds, soft, non-tender abdomen, no palpable masses Neurologic: AAOx3, sensation intact bilaterally, No weakness (Motor 5/5 bilateral lower extremity) Psychiatric: interacting appropriately, not anxious, not encephalopathic, thought process linear ICD10 Worksheet Patient Problems: Problems Problem Status Onset Acute respiratory failure Acute Back pain Acute Uterine cancer Acute
[2016-09-21] MEDS: GABAPENTIN 300 MG CAP PO SCH (19:46)
[2016-09-21] MEDS: LOSARTAN POTASSIUM 50 MG TAB PO SCH (20:22)
[2016-09-22 04:48] LABS: % IMMATURE GRANULYOCYTES 0.9 % (0.0-1.1); ABSOLUTE IMMATURE GRANULOCYTES 0.13 10^3/uL (0.00-0.10); ADD DIFF? NO; ADD MORPH? NO; ADD SCAN? NO; ATYPICAL LYMPHOCYTE FLAG 20 (0-99); FRAGMENT RBC FLAG 0 (0-99); HEMATOCRIT 28.6 % (38.0-47.0); HEMOGLOBIN 9.3 g/dL (12.6-16.3); LEFT SHIFT FLG 0 (0-99); LIPEMIA HEMOLYSIS FLAG 80 (0-99); MEAN CELL HEMOGLOBIN 30.1 pg (27.9-34.1); MEAN CELL HEMOGLOBIN CONCENTR. 32.5 g/dL (32.4-36.7); MEAN CELL VOLUME 92.6 fL (81.5-99.8); MEAN PLATELET VOLUME 8.7 fL (8.7-11.7); PLATELET CLUMPS FLAG 10 (0-99); PLATELET COUNT 417 10^3/uL (150-400); RED BLOOD CELL COUNT 3.09 10^6/uL (4.18-5.33); RED CELL DISTRIBUTION WIDTH 15.9 % (11.5-15.2)
[2016-09-22] MEDS: ACETAMINOPHEN 500 MG TAB PO PRN (04:52)
[2016-09-22 05:08] LABS: ANION GAP 9 mEq/L (8-16); CALCIUM 8.8 mg/dL (8.5-10.4); CARBON DIOXIDE 31 mEq/l (22-31); CHLORIDE 97 mEq/L (97-110); CREATININE 0.7 mg/dL (0.6-1.0); GLOMERULAR FILTRATION RATE > 60; GLUCOSE 103 mg/dL (70-100); POTASSIUM 4.1 mEq/L (3.5-5.2); SODIUM 137 mEq/L (134-144)
[2016-09-22] MEDS: FAMOTIDINE 20 MG TAB PO SCH (05:50)
[2016-09-22 08:04] VITALS: BP 119/92; RESP 14; TEMP 98.4; O2SAT 96
--- NOTE | 2016-09-22 08:13 | NEUSURGPN ---
Assessment/Plan: POD 5 s/p T12/L1, L1/2 laminectomy T12-L2 posterior fusion, new thoracic mets -postop xrays show well placed stable hardware -oob with PT/OT in brace. counseled to not wear brace in bed d/t concerns for tissue breakdown over incision. pt understands. -Pain well controlled, had only tylenol overnight -Dispo- ok for dc to home today from NS standpoint -Defer to oncology for overall treatment of her CA would need to wait 2-3 weeks before xrt -Discussed with Dr. Morocho Subjective: Pt resting in bed, states she wants to go home today. Slept ok overnight. Objective: AAOx3 NAD VSS MAEx4 Motor 5/5 BLE +LT Incision cdi nylon sutures intact, dressing changed Urinary Catheter in Place: No Catheter Insertion Date: 09/17/16 - Physician Discussed Patient with : Bailee Neurosurgery Physical Exam - Vitals, I&O, Labs I and O 09/21/16 09/22/16 09/23/16 05:59 05:59 05:59 Intake Total 1050 850 Output Total 1700 850 Balance -650 0 Intake: Oral (ml) 1050 850 Output: Urine (ml) 1700 850 Bedside Commode 400 450 Incontinence 1000 Toilet 300 400 Other: Intake Quantity Yes Yes Sufficient Number of Voids Bedside Commode 1 1 Incontinence 2 Toilet 1 Number of Stools Bedside Commode 1 Toilet 1 Vital Signs Temp Pulse Resp BP Pulse Ox 36.9 C 93 14 119/92 H 96 09/22/16 08:00 09/22/16 08:00 09/22/16 08:00 09/22/16 08:00 09/22/16 08:00 Laboratory Results 09/22/16 04:16 09/22/16 04:16 ICD10 Worksheet Patient Problems: Problems Problem Status Onset Back pain Acute Uterine cancer Acute Acute respiratory failure Acute
[2016-09-22] MEDS: SENNOSIDES 1 TAB PO SCH (08:16)
[2016-09-22] MEDS: METOPROLOL SUCCINATE XR 100 MG TAB PO SCH (08:16)
[2016-09-22] MEDS: PANTOPRAZOLE SODIUM 40 MG TAB PO SCH (08:16)
[2016-09-22] MEDS: GABAPENTIN 100 MG CAP PO SCH (08:16)
[2016-09-22] MEDS: ENOXAPARIN 40 MG/0.4 ML SYR SC SCH (08:17)
[2016-09-22 08:18] VITALS: PULSE 85
--- NOTE | 2016-09-22 09:07 | PDIAF ---
- Diagnosis Diagnosis: Pathologic compression fracture Code Status: Full Code - Medication Management Discharge Medications: Medications to Continue on Transfer Acetaminophen [Tylenol ES 500 mg (*)] 500 mg PO Q6 PRN 09/16/16 [Last Taken Unknown] Levalbuterol 1.25 mg [Xopenex 1.25MG Neb (*)] 1.25 mg IH DAILY PRN 09/16/16 [ Last Taken 09/15/16] Losartan Potassium [Cozaar] 100 mg PO HS 09/16/16 [Last Taken 09/15/16] Metoprolol Succinate Xr [Toprol Xl 100 mg (*)] 100 mg PO DAILY 09/16/16 [Last Taken 09/15/16] diphenhydrAMINE HCL [Diphen] 25 - 50 mg PO HS 09/16/16 [Last Taken 09/15/16] Gabapentin [Neurontin 100 MG (*)] 100 mg PO TID #90 cap 09/22/16 [Last Taken Unknown] Gabapentin [Neurontin 300 MG (*)] 300 mg PO HS cap 09/22/16 [Last Taken Unknown ] HYDROmorphone HCL [Dilaudid 2 mg (*)] 1 - 4 mg PO Q4 PRN #40 tab 09/22/16 [Last Taken Unknown] Ondansetron Odt [Zofran Odt 4 mg (*)] 4 mg PO Q4HRS PRN #40 tab 09/22/16 [Last Taken Unknown] Pantoprazole Sodium [Protonix 40mg (*)] 40 mg PO DAILY #30 tab 09/22/16 [Last Taken Unknown] Ranitidine HCl 150 mg PO BID PRN #60 tablet 09/22/16 [Last Taken Unknown] Sennosides [Senokot] 1 tab PO BID #60 tab 09/22/16 [Last Taken Unknown] Learning And Development Analyst Antibiotics: NA Discharge Medications: Refer to the Discharge Home Medication list for PRN reason. PICC Care - Routine: N/A - Orders Services needed: Home Care, Registered Nurse, Physical Therapy Home Care Face to Face: I certify that this patient was under my care and that I had the required [id number] encounter meeting the encounter requirements on the discharge day. My findings support the fact that the patient is homebound as defined in CMS Chapter 7 Medicare Benefits Manual 30.1.1, The condition of the patient is such that there exists a normal inability to leave home and consequently, leaving home would require a considerable and taxing effort. Diet Recommendation: no restrictions on diet Hope: Not applicable Sutures/[place] Site: will be assessed at Dr. Morocho's office Activity/Weight Bearing Restrictions: brace when out of bed - Follow Up Care Current Providers and Referrals: Swathi Bernal MD [Primary Care Provider] - As per Instructions Verónica Foster MD [Medical Doctor] - Humaira Morocho DO [Doctor of Osteopathy] - 09/30/16
--- NOTE | 2016-09-22 09:13 | PDDCSUM ---
Discharge Summary Discharge Summary: DISCHARGE SUMMARY FOLLOW-UP ITEMS: Schedule outpatient radiation therapy and then chemo thereafter DATE OF ADMISSION: 09/16/2016 DATE OF DISCHARGE: 09/22/2016 DISCHARGE DIAGNOSES: 1. Acute pathologic compression fracture of the thoracic and lumbar vertebrae 2. Constipation 3. Asymptomatic bacteria 4. Metastatic uterine cancer 5. Hypokalemia 6. Chronic hypertension 7. Continuous opiate dependency CONSULTATIONS: Neurosurgery by Dr. Morocho, oncology PROCEDURES / IMAGING: T12-L2 PSF, laminectomy by Dr. Morocho CHIEF COMPLAINT: Acute back and lower extremity pain, paresthesias SUBJECTIVE: Patient is feeling well at time of discharge, she has full motor strength, not experiencing any pain PHYSICAL EXAM ON DISCHARGE: Systolic blood pressure 120, heart rate 80s, satting 93% on room air, motor strength 5/5 bilateral lower extremities, sensation intact bilateral lower extremities, bowel sounds are present, breath sounds clear to auscultation bilaterally LABS ON DISCHARGE: White blood cell count 76130, hemoglobin 9.3, creatinine 0.7, potassium 4.1 HOSPITAL COURSE BY PROBLEM: 1. Acute pathologic compression fracture. Occurring in the thoracic and lumbar vertebrae. Noted on MRI with compression of the conus medullaris. Required T12 -L2 PSF with laminectomy by Dr. Morocho. Patient is to wear a brace when out of bed. Her hospitalization was extended in order to ensure good pain control on oral medications, consisting of Tylenol, oral Dilaudid, gabapentin. Patient has stable mobility on the date of discharge and is safe to go home with home services. She will follow up with Dr. Morocho 2 weeks from the surgery date. 2. Constipation. Patient has moved her bowels twice prior to discharge, she will be continued on senna at home to avoid further constipation. 3. Asymptomatic bacteriuria. Patient's culture grew less than 10,000 colonies and her repeat urinalysis was unremarkable. She did have some discomfort at her urethra which is most likely secondary to Hope catheter irritation and was treated with topical lidocaine. 4. Metastatic uterine cancer. Patient was seen in consultation by Oncology, they recommended waiting on radiation therapy for several weeks after her surgery date, ensuring that she is experiencing good healing through Neurosurgery prior to initiating. I recommended that the patient follow up with Dr. Foster after her follow-up appointment with Dr. Morocho, in order to schedule. 5. Hypokalemia. This was repleted. 6. Chronic hypertension. Patient was continued on her home medications 7. Chronic pain with continuous opiate dependency. Patient had previously been taking hydrocodone at home, we need to escalate her opiate pain medication to Dilaudid during this hospitalization and she is stable with oral Dilaudid for breakthrough. She will continue taking as needed Tylenol and she has been initiated on gabapentin 100 mg in the morning, 100 mg in the afternoon, 300-400 mg at night. DISCHARGE MEDICATIONS: Please see official discharge medication reconciliation sheet in chart , Dilaudid 1-4 mg as needed, gabapentin 100 mg/100 mg/400 mg, as needed Tylenol, scheduled Senokot. DISCHARGE INSTRUCTIONS: Patient should follow up with Dr. Morocho on 09/30, Dr. Foster thereafter. TIME SPENT: Greater than 30 minutes were spent on direct patient care, as well as discharge planning and preparation.
[2016-09-22] MEDS: HYDROmorphONE/DILAUDID 4 MG TAB PO PRN (10:13)
== END 2016-09-22 12:15 | disposition home health service (06) | DRG 460 ==
LOC: OBSVTOIN 10:19 → F1N 11:08 → F3N 09-17 21:54
PROVIDERS: ADMIT Internal Medicine; ATTEND Internal Medicine
PROC: 01NB0ZZ Release Lumbar Nerve, Open Approach (ICD-10-PCS; principal; 2016-09-17 17:43)
PROC: 0RGA0AJ Fusion of Thoracolumbar Vertebral Joint with Interbody Fusion Device, Posterior Approach, Anterior Column, Open Approach (ICD-10-PCS; principal; 2016-09-17 17:43)
PROC: 8E0WXBZ Computer Assisted Procedure of Trunk Region (ICD-10-PCS; principal; 2016-09-17 17:43)
PROC: 0SG00AJ Fusion of Lumbar Vertebral Joint with Interbody Fusion Device, Posterior Approach, Anterior Column, Open Approach (ICD-10-PCS; principal; 2016-09-17 17:43)
PROC: 4A1004G Monitoring of Central Nervous Electrical Activity, Intraoperative, Open Approach (ICD-10-PCS; principal; 2016-09-17 17:43)
PROC: 01N80ZZ Release Thoracic Nerve, Open Approach (ICD-10-PCS; principal; 2016-09-17 17:43)
DX: M84.48XA Pathological fracture, other site, initial encounter for fracture (principal); C79.51 Secondary malignant neoplasm of bone; C78.00 Secondary malignant neoplasm of unspecified lung; F11.20 Opioid dependence, uncomplicated; J96.11 Chronic respiratory failure with hypoxia; E87.6 Hypokalemia; G62.0 Drug-induced polyneuropathy; K59.00 Constipation, unspecified; M48.06 Spinal stenosis, lumbar region; I10 Essential (primary) hypertension; R82.71 Bacteriuria; G89.29 Other chronic pain; Z85.42 Personal history of malignant neoplasm of other parts of uterus
CPT/HCPCS: 96374; 97116-GP; 97162-GP; 97165-GO; 97530-GO; 97530-GP; 97535-GO; A9585; C1713; J1100; J1170; J1650; J2250; J2370; J2405; J2704; J3010; J3370; Q9967

== ENCOUNTER 2016-09-30 14:31 | Inpatient (IN) | payer OTHER ==
[2016-09-30] MEDS ORDERED: ONDANSETRON 4 MG/2 ML VIAL IVP PRN (17:05)
[2016-09-30] MEDS ORDERED: oxyCODONE IR 5 MG TAB PO PRN (17:05)
[2016-09-30] MEDS ORDERED: ONDANSETRON DISINTEGRATING 4 MG TAB PO PRN (17:05)
[2016-09-30] MEDS ORDERED: LORazepam 2 MG/ML INJ IVP PRN (17:05)
[2016-09-30] MEDS ORDERED: PROMETHAZINE HCL 25 MG TAB PO PRN (17:05)
[2016-09-30] MEDS ORDERED: LACTULOSE 20 GM/30 ML UDCUP PO PRN (17:09)
[2016-09-30] MEDS ORDERED: POLYETHYLENE GLYCOL 3350 17 GM PKT PO PRN (17:09)
[2016-09-30] MEDS ORDERED: BISACODYL 10 MG SUPP PR PRN (17:09)
[2016-09-30] MEDS ORDERED: MAGNESIUM HYDROXIDE 30 ML UDCUP PO PRN (17:09)
[2016-09-30] MEDS: NS 1,000 ML IV SCH (17:22)
[2016-09-30] MEDS: HYDROmorphONE/DILAUDID 1 MG/ML SYR IVP PRN ×3 (17:30→22:15)
[2016-09-30] MEDS ORDERED: FAMOTIDINE 20 MG/NACL 50 ML IV ONE (17:47)
[2016-09-30] MEDS ORDERED: methylPREDNISolone SOD SUCC 125 MG/2 ML VIAL IVP ONE (17:47)
[2016-09-30] MEDS ORDERED: NALOXONE HCL 0.4 MG/ML INJ IVP PRN (17:49)
[2016-09-30 19:01] LABS: COLOR PALE YELLOW; LEUKOCYTE ESTERASE,URINE 1+ (NEGATIVE); NITRITE,URINE NEGATIVE (NEGATIVE)
[2016-09-30] MEDS ORDERED: LEVALBUTEROL 1.25 MG/3 ML DEYVIAL IH PRN (19:52)
[2016-09-30] MEDS ORDERED: ACETAMINOPHEN 500 MG TAB PO PRN (19:52)
[2016-09-30] MEDS ORDERED: IOPAMIDOL (ISOVUE 370) 100 ML BTL IV ONE (20:14)
--- NOTE | 2016-09-30 20:39 | GHP ---
[f rep st] HISTORY AND PHYSICAL DATE OF ADMISSION: 09/30/2016 CHIEF COMPLAINT: Abdominal pain. HISTORY OF PRESENT ILLNESS: This is a 61-year-old female who has a past medical history of metastat ic uterine cancer with known spinal and lung metastases, as well as a recent hospitalization, discha ed on 09/22/2016, for acute pathologic compression fracture of thoracic and lumbar vertebrae, status post laminectomy and T12 to L2 posterior fusion, who presents with a new onset of abdominal pain pr esent across the bilateral upper quadrants. The pain is severe and difficult to control even with o piate pain medications. Her symptoms related to her compression fracture, which were severe, intrac table back and hip pain, have improved and she has no neurologic deficits since the surgery. She do es not believe she has had any fevers or chills. She has had some shortness of breath and was noted to be hypoxic upon presentation to her oncologist's office. She has been having normal bowel movem ents. She has never had pain like this in the past. PAST MEDICAL HISTORY: Includes: 1. Metastatic uterine cancer initially diagnosed in 2004. Has history of spinal metastases as well as pathologic fractures and lung metastases. 2. Chronic hypoxic respiratory failure, but generally only using oxygen intermittently, largely rel ated to pain. 3. Chronic pain and continuous narcotic use since . 4. Hypertension. 5. Hypothyroidism. 6. Peripheral neuropathy secondary to chemotherapy. PAST SURGICAL HISTORY: 1. Hysterectomy. 2. Lung biopsy. 3. Sinus surgery. 4. Laminectomy and T12 to L2 posterior fusion. SOCIAL HISTORY: Patient is and lives with her in [place]. 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 They have 2 children. She denies alcohol, illicits, or tobacco use. FAMILY HISTORY: Includes coronary artery disease, hypertension, diabetes, uterine cancer. MEDICATIONS: Home medications include: 1. Benadryl. 2. Senna. 3. Protonix. 4. Zofran. 5. Metoprolol. 6. Losartan. 7. Levalbuterol. 8. Dilaudid. 9. Gabapentin. 10. Famotidine. 11. Tylenol. ALLERGIES: Multiple allergies and include penicillins, most opiates, other than Dilaudid. REVIEW OF SYSTEMS: 10-point review of systems obtained, negative except as per HPI. PHYSICAL EXAMINATION: VITAL SIGNS: BP 139/89. Heart rate 92. Respiratory rate 22. O2 sat is 95% on 2 L. Temperature is 36.9. GENERAL APPEARANCE: This is a chronically ill-appearing female. Sh e is in mild distress. She is awake and alert. EYES: Anicteric. She does have somewhat dysconjug ate gaze. HENT: Dry mucous membranes, oropharynx clear. CARDIOVASCULAR: RRR, no MRG. PULMONARY: CTA bilaterally, normal work of breathing. ABDOMEN: Soft. Bowel sounds are diminished but prese nt. There is mild tenderness to palpation in the bilateral upper quadrants, without rebound or guar ding. EXTREMITIES: No clubbing, cyanosis, or edema. SKIN: Warm, dry, well perfused. NEURO/PSYCH : Oriented and appropriate, pleasant. CLINICAL DATA: Labs reviewed, significant for white blood cell count of 14.7, hemoglobin of 9.3, he matocrit of 28.6, platelets of 417. Chemistry is pending. Urinalysis significant for 1+ blood, 1+ leukocyte esterase, 5-10 red blood cells, 5-10 white blood c ells. Thoracic spine x-ray, personally reviewed and interpreted, shows no acute changes. There are old co mpression deformities that are unchanged, evidence of a laminectomy. Rib and chest x-ray, personally reviewed and interpreted, shows metastatic left 5th rib lesion with a healing pathologic fracture. Lumbar spine x-ray shows excellent postoperative alignment. ASSESSMENT AND PLAN: 61-year-old female with a past medical history of metastatic uterine cancer, a s well as recent admission for pathologic compression fracture of thoracic and lumbar vertebrae, sta tus post laminectomy and spinal fusion, now admitted with severe upper abdominal pain, along with sh ortness of breath and hypoxia. 1. Abdominal pain, unclear etiology at this point. Will obtain CMP and lipase, as well as abdomina l CT scan. The pain is somewhat pleuritic and associated with shortness of breath and hypoxia, so a nother potential etiology would be pulmonary embolism. Patient certainly would be at high risk for this, given underlying malignancy and recent surgery. Will also obtain CT angiogram of the chest. Will start a Dilaudid INTEGRATED LOGISTICS PROGRAMS DIRECTOR for better pain control. 2. Hypoxia. Patient does have chronic hypoxic respiratory failure, related largely to pain. She i s currently 95% on 2 L. She was slightly lower earlier, at her oncologist's office, but again, this in the setting of pain so unclear if this is new or at baseline. Again, CT angiogram to be perform ed. 3. Metastatic uterine cancer with known lung and bone metastases. Rib films were obtained and do s how a stable rib fracture, without any new fractures. She is followed by Dr. Foster, who saw her in clinic today and will be following while she is in-house. 4. Leukocytosis. This is actually stable, but will follow. She does not have any real evidence of infection. 5. Anemia. Again, this is stable and at baseline. Will follow. 6. Bacteriuria. This appears to be a dirty catch with epithelial cells present as well as blood. Culture is pending. Will hold off on antibiotics, unless culture is convincing. 7. Disposition: Inpatient status. Patient is requiring IV opiates, making her high risk. She has multiple active comorbidities. Patient is new to my care. Care plan reviewed with Dr. Verónica Foster at length. Further history obta ined from patient's , present at bedside. Old records reviewed and summarized as per HPI and Past Medical History. /[id number]/MODL
[2016-09-30 21:00] LABS: ALANINE AMINOTRANSFERASE 28 IU/L (9-52); ALBUMIN 3.6 g/dL (3.5-5.0); ALKALINE PHOSPHATASE 176 IU/L (38-126); ANION GAP 11 mEq/L (8-16); ASPARTATE AMINOTRANSFERASE 31 IU/L (14-46); BILIRUBIN,TOTAL 0.8 mg/dL (0.1-1.4); CALCIUM 9.3 mg/dL (8.5-10.4); CARBON DIOXIDE 26 mEq/l (22-31); CHLORIDE 101 mEq/L (97-110); CREATININE 0.7 mg/dL (0.6-1.0); GLOMERULAR FILTRATION RATE > 60; GLUCOSE 165 mg/dL (70-100); POTASSIUM 4.4 mEq/L (3.5-5.2); SODIUM 138 mEq/L (134-144); TOTAL PROTEIN 7.6 g/dL (6.3-8.2)
[2016-09-30] MEDS ORDERED: SENNOSIDES 1 TAB PO SCH (21:00)
[2016-09-30] MEDS ORDERED: GABAPENTIN 300 MG CAP PO SCH (21:00)
[2016-09-30] MEDS: FAMOTIDINE 20 MG TAB PO SCH (21:03)
[2016-09-30] MEDS: GABAPENTIN 300 MG CAP PO SCH (21:03)
[2016-09-30] MEDS: LOSARTAN POTASSIUM 50 MG TAB PO SCH (21:03)
[2016-09-30] MEDS: SENNOSIDES/DOCUSATE SODIUM TAB PO SCH (21:03)
[2016-10-01 03:41] LABS: ABSOLUTE IMMATURE GRANULOCYTES 0.22 10^3/uL (0.00-0.10); ADD DIFF? NO; ADD MORPH? NO; ADD SCAN? NO; ATYPICAL LYMPHOCYTE FLAG 0 (0-99); FRAGMENT RBC FLAG 0 (0-99); HEMATOCRIT 27.2 % (38.0-47.0); HEMOGLOBIN 8.8 g/dL (12.6-16.3); LEFT SHIFT FLG 0 (0-99); LIPEMIA HEMOLYSIS FLAG 80 (0-99); MEAN CELL HEMOGLOBIN 30.1 pg (27.9-34.1); MEAN CELL HEMOGLOBIN CONCENTR. 32.4 g/dL (32.4-36.7); MEAN CELL VOLUME 93.2 fL (81.5-99.8); MEAN PLATELET VOLUME 8.5 fL (8.7-11.7); PLATELET CLUMPS FLAG 0 (0-99); PLATELET COUNT 537 10^3/uL (150-400); RED BLOOD CELL COUNT 2.92 10^6/uL (4.18-5.33); RED CELL DISTRIBUTION WIDTH 16.1 % (11.5-15.2)
[2016-10-01] MEDS: HYDROmorphONE/DILAUDID 1 MG/ML SYR IVP PRN ×3 (04:03→10:27)
[2016-10-01 04:45] LABS: ALANINE AMINOTRANSFERASE 29 IU/L (9-52); ALKALINE PHOSPHATASE 159 IU/L (38-126); ANION GAP 9 mEq/L (8-16); ASPARTATE AMINOTRANSFERASE 26 IU/L (14-46); BILIRUBIN,TOTAL 0.6 mg/dL (0.1-1.4); CALCIUM 8.7 mg/dL (8.5-10.4); CARBON DIOXIDE 25 mEq/l (22-31); CHLORIDE 104 mEq/L (97-110); CREATININE 0.7 mg/dL (0.6-1.0); GLOMERULAR FILTRATION RATE > 60; GLUCOSE 145 mg/dL (70-100); MAGNESIUM 1.7 mg/dL (1.6-2.3); POTASSIUM 4.4 mEq/L (3.5-5.2); SODIUM 138 mEq/L (134-144); TOTAL PROTEIN 6.8 g/dL (6.3-8.2)
[2016-10-01] MEDS: FAMOTIDINE 20 MG TAB PO SCH ×2 (08:35→21:57)
[2016-10-01] MEDS: PANTOPRAZOLE SODIUM 40 MG TAB PO SCH (08:35)
[2016-10-01] MEDS: GABAPENTIN 100 MG CAP PO SCH ×2 (08:36→11:53)
[2016-10-01] MEDS: SENNOSIDES/DOCUSATE SODIUM TAB PO SCH ×2 (08:36→21:55)
[2016-10-01] MEDS ORDERED: GABAPENTIN 100 MG CAP PO SCH (09:00)
[2016-10-01] MEDS ORDERED: ENOXAPARIN 40 MG/0.4 ML SYR SC SCH (09:00)
[2016-10-01] MEDS: diphenhydrAMINE 25 MG CAP PO PRN ×3 (11:39→21:57)
[2016-10-01] MEDS: HYDROmorphONE/DILAUDID 6 MG/30 ML PCA IV PRN (11:45)
[2016-10-01] MEDS: METOPROLOL SUCCINATE XR 100 MG TAB PO SCH (11:53)
--- NOTE | 2016-10-01 11:56 | GCON ---
[f rep st] CONSULTATION INPATIENT ONCOLOGY CONSULTATION DATE OF CONSULTATION: 10/01/2016 REFERRING PHYSICIAN: Seth Monzon MD REASON FOR CONSULTATION: Metastatic uterine cancer, acute abdominal pain. HISTORY OF PRESENT ILLNESS: The patient is a 61-year-old woman with metastatic uterine cancer. She has bilateral pulmonary metastases and until recently was receiving third-line therapy with Doxil. She developed a pathologic T12 fracture and had a decompression laminectomy performed by Dr. Vivi moy on September 17. She did well postoperatively and was discharged to home with the plan of receiving radiation therapy to the operative site and then resuming the Doxil, which did appear to be having a beneficial effect on her tumor. Two days prior to admission, she developed some abdominal pain which was distinct from the pain in h er back at the surgical site. It was quite severe and she felt that it was so bad that she was not able to bear any weight. She was taking Dilaudid at home for the back pain and was having some issu es with constipation. She was seen in clinic and, due to the severity of her pain, was referred to the emergency department. A CT angiogram was performed, which did not show a pulmonary embolism. I t did show that several of the pulmonary nodules were larger than previously. The largest nodule me asures 6.2 x 4.6 cm in the right lower lobe. She also had a CT scan of the abdomen which revealed a n ileus and some constipation without any evidence of acute bowel obstruction or metastatic disease. She was admitted overnight and received hydration as well as IV pain medication. She is feeling s omewhat better this morning. She also has a chronic cough which is somewhat worse and is exacerbati ng her abdominal pain. PAST MEDICAL HISTORY: 1. Metastatic uterine cancer, as described above. 2. Chronic pain. 3. Hypertension. 4. Hypothyroidism. 5. Peripheral neuropathy. CURRENT MEDICATIONS: Include Tylenol, Benadryl as needed, Lovenox 40 mg subcutaneous daily, gabapen tin, IV Dilaudid, Xopenex nebulizer, Cozaar. ALLERGIES: Amoxicillin as well as morphine. FAMILY HISTORY: Noncontributory. SOCIAL HISTORY: She lives with her . She does not drink alcohol or smoke cigarettes. REVIEW OF SYSTEMS: Aside from pertinent positives noted in the HPI, a 14-point review of systems wa s negative. PHYSICAL EXAMINATION: VITAL SIGNS: Her temperature is 36.6, blood pressure 147/74, heart rate 85, oxygen saturation 97% on 3 L. GENERAL: She was moderately uncomfortable. HEENT: Sclerae anicteri c. Oropharynx is clear. NECK: Supple without lymphadenopathy. LUNGS: Clear to auscultation bila terally. CARDIAC: Regular rate and rhythm. No murmurs, gallops, or rubs. ABDOMEN: She has sincere l bowel sounds, but it was moderately distended with no tenderness. EXTREMITIES: Without edema. 2 + pulses. LABORATORY DATA: White count 21, hemoglobin 8.8, platelets of 537. Sodium 138, potassium 4.4, chlo ride 104, bicarb 25, BUN 9, creatinine 0.7. Liver function tests within normal limits. IMPRESSION: The patient's abdominal pain is likely from constipation and ileus, which may have been exacerbated by the use of narcotic pain medications and relative immobility after surgery. She has been started on a bowel regimen, and I encourage ambulation as well as hydration in order to resolv e this problem. I will also prescribe Tessalon Perles to help with her cough. She does use Benadry l, which she says is sometimes effective. She has leukocytosis and mild thrombocytosis, which is likely secondary to the cancer. With respect to the next steps in her treatment, she will follow up with Dr. Foster once this acute episode is r esolved, and they can decide whether to proceed with radiation therapy or to resume chemotherapy fir st given that she does appear to have progressive disease at this juncture. /[id number]/MODL
--- NOTE | 2016-10-01 13:56 | HOSPPROG ---
Hospitalist Progress Note Assessment/Plan: 61-year-old female with known uterine carcinoma that is metastatic to the chest and spine presents with abdominal pain. CTA of the chest and abdomen show no evidence of a pulmonary embolus but do show possible obstipation constipation without signs of obstruction. Patient is new to me today -uterine carcinoma metastatic to the lung with large pulmonary nodules. Per Oncology as note the pulmonary masses have increased in size despite the use of Doxil although overall it is felt that she is responding to Doxil. -obstipation constipation per findings of the CT scan. She has been given MiraLax and now is moving gas below. Agency that the abdominal pain is secondary to obstipation and constipation due to the increased need of narcotics due to her recent neurosurgical procedure. Today she is improved the abdominal pain is less. She prefers to use MiraLax and prune juice for her constipation. -acute and chronic pain syndrome, narcotic dependent. Patient will be placed on a VENETIAN BLIND WORKER pump for pain relief at this time -hypertension currently on losartan and metoprolol and in good control. -DVT prophylaxis: Patient is experiencing hemoptysis probably secondary to the enlarging pulmonary masses. Thus will not use Lovenox but only SCDs. -code status: Full Subjective: Reports she is feeling improved with less abdominal pain and now is moving gas below no chest pain or shortness of breath. She does have a cough that and had hemoptysis early on on the admission. The hemoptysis is mostly stop. She routinely has a slight cough with some blood-tinged sputum. Objective: Vital Signs Temp Pulse Resp BP Pulse Ox 37.1 C 95 14 142/81 H 94 10/01/16 11:37 10/01/16 12:44 10/01/16 12:44 10/01/16 12:44 10/01/16 12:44 Microbiology 09/30/16 22:15 - Final Sputum, Expectorated Laboratory Results 10/01/16 03:30 10/01/16 03:30 09/30/16 10/01/16 10/02/16 05:59 05:59 05:59 Intake Total 2045 Output Total 952 Balance 196 - Time Spent With Patient Time Spent with Patient: greater than 35 minutes Time Spent with Patient: Greater than 35 minutes spent on this patients care, greater than 50% of time spent counseling, educating, and coordinating care regarding the above mentioned plan. - Pending Discharge Pending Discharge Within 24 Hours: No Pending Discharge Within 48 Hours: No - Physical Exam Constitutional: no apparent distress, chronically ill appearing Eyes: PERRL Ears, Nose, Mouth, Throat: no oral mucosal ulcers, other (Dry mucous membranes.) Cardiovascular: regular rate and rhythym, no murmur, rub, or gallop Respiratory: no respiratory distress, reduced air movement, bronchial breath sounds, rhonchi Gastrointestinal: normoactive bowel sounds, no palpable masses, distension, other (Normal to hypoactive bowel sounds although the patient is moving gas below but has not moved her bowels yet.) Genitourinary: no bladder fullness Skin: warm Musculoskeletal: generalized weakness Neurologic: AAOx3, CN II-XII Intact Psychiatric: interacting appropriately ICD10 Worksheet Patient Problems: Problems Problem Status Onset Acute respiratory failure Acute Back pain Acute Uterine cancer Acute
[2016-10-01] MEDS: ACETAMINOPHEN 325 MG TAB PO PRN (17:30)
[2016-10-01] MEDS: LOSARTAN POTASSIUM 50 MG TAB PO SCH (21:56)
[2016-10-01] MEDS: GABAPENTIN 300 MG CAP PO SCH (21:57)
[2016-10-02] MEDS: ACETAMINOPHEN 325 MG TAB PO PRN ×3 (00:17→12:17)
[2016-10-02] MEDS: NS 1,000 ML IV SCH (05:07)
[2016-10-02 05:34] LABS: % IMMATURE GRANULYOCYTES 0.4 % (0.0-1.1); ABSOLUTE IMMATURE GRANULOCYTES 0.06 10^3/uL (0.00-0.10); ADD DIFF? NO; ADD MORPH? NO; ADD SCAN? NO; ATYPICAL LYMPHOCYTE FLAG 10 (0-99); FRAGMENT RBC FLAG 0 (0-99); HEMATOCRIT 24.8 % (38.0-47.0); HEMOGLOBIN 8.1 g/dL (12.6-16.3); LEFT SHIFT FLG 0 (0-99); LIPEMIA HEMOLYSIS FLAG 80 (0-99); MEAN CELL HEMOGLOBIN 30.5 pg (27.9-34.1); MEAN CELL HEMOGLOBIN CONCENTR. 32.7 g/dL (32.4-36.7); MEAN CELL VOLUME 93.2 fL (81.5-99.8); MEAN PLATELET VOLUME 8.5 fL (8.7-11.7); PLATELET CLUMPS FLAG 0 (0-99); PLATELET COUNT 542 10^3/uL (150-400); RED BLOOD CELL COUNT 2.66 10^6/uL (4.18-5.33); RED CELL DISTRIBUTION WIDTH 16.4 % (11.5-15.2)
[2016-10-02 05:50] LABS: ALANINE AMINOTRANSFERASE 24 IU/L (9-52); ALKALINE PHOSPHATASE 135 IU/L (38-126); ANION GAP 9 mEq/L (8-16); ASPARTATE AMINOTRANSFERASE 23 IU/L (14-46); BILIRUBIN,TOTAL 0.7 mg/dL (0.1-1.4); CALCIUM 8.8 mg/dL (8.5-10.4); CARBON DIOXIDE 28 mEq/l (22-31); CHLORIDE 102 mEq/L (97-110); CREATININE 0.7 mg/dL (0.6-1.0); GLOMERULAR FILTRATION RATE > 60; GLUCOSE 99 mg/dL (70-100); POTASSIUM 3.8 mEq/L (3.5-5.2); SODIUM 139 mEq/L (134-144); TOTAL PROTEIN 6.4 g/dL (6.3-8.2)
[2016-10-02] MEDS: GABAPENTIN 100 MG CAP PO SCH ×2 (08:38→12:16)
[2016-10-02] MEDS: FAMOTIDINE 20 MG TAB PO SCH ×2 (08:39→20:34)
[2016-10-02] MEDS: PANTOPRAZOLE SODIUM 40 MG TAB PO SCH (08:39)
--- NOTE | 2016-10-02 10:38 | SOAPPROG ---
SOAP Progress Note Assessment/Plan: Assessment: 1. metastatic uterine cancer (lung, bone) 2. T12 compression fracture s/p surgery 09/17 3. Abd pain - likely due to obstipation Plan: - continue bowel regimen - continue dilaudid DECORATOR INSPECTOR - d/c when pain adequately controlled 10/02/16 10:34 Subjective: 3 large BM yesterday. initially felt better, but now having persistent pain in abd. Objective: exam: NAD Abd soft, nontender, normal bowel sounds Vital Signs Temp Pulse Resp BP Pulse Ox 37.2 C 97 16 151/86 H 86 L 10/02/16 10:10 10/02/16 10:10 10/02/16 10:10 10/02/16 10:10 10/02/16 10:10 Microbiology 09/30/16 19:03 Urine Culture - Final Urine,Clean Catch Strep Agalactiae Group B Gram Neg Guevara Lactose Communication Lecturer Two [place] Types 09/30/16 22:15 - Final Sputum, Expectorated Laboratory Results 10/02/16 05:00 10/02/16 05:00 10/01/16 10/02/16 10/03/16 05:59 05:59 05:59 Intake Total 2046 1351 Output Total 1850 400 Balance 196 951 ICD10 Worksheet Patient Problems: Problems Problem Status Onset Acute respiratory failure Acute Back pain Acute Uterine cancer Acute
[2016-10-02] MEDS: SENNOSIDES/DOCUSATE SODIUM TAB PO SCH ×2 (11:06→20:34)
[2016-10-02] MEDS: METOPROLOL SUCCINATE XR 100 MG TAB PO SCH (12:16)
[2016-10-02] MEDS: diphenhydrAMINE 25 MG CAP PO PRN ×2 (15:02→20:43)
--- NOTE | 2016-10-02 15:30 | HOSPPROG ---
Hospitalist Progress Note Assessment/Plan: 61-year-old female with known uterine carcinoma that is metastatic to the chest and spine presents with abdominal pain. CTA of the chest and abdomen show no evidence of a pulmonary embolus but do show possible obstipation constipation without signs of obstruction. Patient was admitted because of abdominal pain and found to be severely constipated and a partial ileus. Treatment with MiraLax and suppositories resulted in significant stool output and relief. Patient's pain has improved today. -uterine carcinoma metastatic to the lung with large pulmonary nodules. Per Oncology as note the pulmonary masses have increased in size despite the use of Doxil although overall it is felt that she is responding to Doxil. -obstipation constipation per findings of the CT scan. She has been given MiraLax and now is moving gas below. [place] that the abdominal pain is secondary to obstipation and constipation due to the increased need of narcotics due to her recent neurosurgical procedure. Today she is improved the abdominal pain is less. She prefers to use MiraLax and prune juice for her constipation. -leukocytosis, new: Admission white count 41095 fell to 16,000. Patient is afebrile and shows no signs of sepsis. This is probably a leukemoid reaction -anemia with an admission hemoglobin 8.8 fell to 8.1. There is no signs of bleeding. There was no blood in the stool. This is probably dilutional and the anemia secondary to her chronic disease. -acute and chronic pain syndrome, narcotic dependent. Patient will be placed on a HAULING CONTRACTOR pump for pain relief at this time. She has good pain relief at this time and desires to be discharged on p.o. Vicodin which she believes can control her pain. -hypertension currently on losartan and metoprolol and in good control. -DVT prophylaxis: Patient is experiencing hemoptysis probably secondary to the enlarging pulmonary masses. Thus will not use Lovenox but only SCDs. -code status: Full Disposition: Discharge on 10/03 on Vicodin pain relief. Will stop the HAULING CONTRACTOR pump in the morning. Subjective: Reports she is still feeling some abdominal pain but significant relief post the significant stool wall port with MiraLax. No fever, nausea or vomiting. She had a cough with slight hemoptysis on admission and that has now resolved. The hemoptysis was likely secondary to the large tumors in her chest. Objective: Vital Signs Temp Pulse Resp BP Pulse Ox 37.6 C 106 H 16 143/88 H 95 10/02/16 11:53 10/02/16 11:53 10/02/16 11:53 10/02/16 11:53 10/02/16 11:53 Microbiology 09/30/16 19:03 Urine Culture - Final Urine,Clean Catch Strep Agalactiae Group B Gram Neg Guevara Lactose Punch Machine Operator Two [place] Types 09/30/16 22:15 - Final Sputum, Expectorated Laboratory Results 10/02/16 05:00 10/02/16 05:00 10/01/16 10/02/16 10/03/16 05:59 05:59 05:59 Intake Total 2046 1351 Output Total 1850 400 Balance 196 951 - Time Spent With Patient Time Spent with Patient: greater than 35 minutes Time Spent with Patient: Greater than 35 minutes spent on this patients care, greater than 50% of time spent counseling, educating, and coordinating care regarding the above mentioned plan. - Pending Discharge Pending Discharge Within 24 Hours: Yes Pending Discharge Date: 10/03/16 Pending Discharge Time: 11:00 - Physical Exam Constitutional: no apparent distress Eyes: PERRL Ears, Nose, Mouth, Throat: moist mucous membranes Cardiovascular: regular rate and rhythym, no murmur, rub, or gallop, systolic murmur Respiratory: no respiratory distress, bronchial breath sounds, rhonchi, other ( Few scattered crackles are heard.) Gastrointestinal: normoactive bowel sounds, tenderness, other (There is very mild tenderness in the abdomen on deep palpation without tenderness in the right upper quadrant or left lower quadrant.) Genitourinary: no bladder fullness Skin: warm Musculoskeletal: generalized weakness Neurologic: AAOx3, CN II-XII Intact Psychiatric: interacting appropriately ICD10 Worksheet Patient Problems: Problems Problem Status Onset Acute respiratory failure Acute Back pain Acute Uterine cancer Acute
[2016-10-02] MEDS: HYDROmorphONE/DILAUDID 6 MG/30 ML PCA IV PRN (19:46)
[2016-10-02] MEDS: LOSARTAN POTASSIUM 50 MG TAB PO SCH (20:34)
[2016-10-02] MEDS: GABAPENTIN 300 MG CAP PO SCH (20:34)
[2016-10-03] MEDS: ACETAMINOPHEN 325 MG TAB PO PRN ×3 (02:36→12:08)
[2016-10-03] MEDS: NS 1,000 ML IV SCH (04:16)
[2016-10-03 05:21] LABS: % IMMATURE GRANULYOCYTES 0.7 % (0.0-1.1); ABSOLUTE IMMATURE GRANULOCYTES 0.11 10^3/uL (0.00-0.10); ADD DIFF? NO; ADD MORPH? NO; ADD SCAN? NO; ATYPICAL LYMPHOCYTE FLAG 0 (0-99); FRAGMENT RBC FLAG 0 (0-99); HEMATOCRIT 24.4 % (38.0-47.0); HEMOGLOBIN 7.7 g/dL (12.6-16.3); LEFT SHIFT FLG 0 (0-99); LIPEMIA HEMOLYSIS FLAG 80 (0-99); MEAN CELL HEMOGLOBIN 29.5 pg (27.9-34.1); MEAN CELL HEMOGLOBIN CONCENTR. 31.6 g/dL (32.4-36.7); MEAN CELL VOLUME 93.5 fL (81.5-99.8); MEAN PLATELET VOLUME 8.8 fL (8.7-11.7); PLATELET CLUMPS FLAG 0 (0-99); PLATELET COUNT 521 10^3/uL (150-400); RED BLOOD CELL COUNT 2.61 10^6/uL (4.18-5.33); RED CELL DISTRIBUTION WIDTH 16.3 % (11.5-15.2)
[2016-10-03 05:37] LABS: ALANINE AMINOTRANSFERASE 25 IU/L (9-52); ALBUMIN 2.8 g/dL (3.5-5.0); ALKALINE PHOSPHATASE 123 IU/L (38-126); ANION GAP 8 mEq/L (8-16); ASPARTATE AMINOTRANSFERASE 21 IU/L (14-46); BILIRUBIN,TOTAL 0.7 mg/dL (0.1-1.4); CALCIUM 8.5 mg/dL (8.5-10.4); CARBON DIOXIDE 30 mEq/l (22-31); CHLORIDE 98 mEq/L (97-110); CREATININE 0.7 mg/dL (0.6-1.0); GLOMERULAR FILTRATION RATE > 60; GLUCOSE 127 mg/dL (70-100); POTASSIUM 3.8 mEq/L (3.5-5.2); SODIUM 136 mEq/L (134-144)
[2016-10-03] MEDS: FAMOTIDINE 20 MG TAB PO SCH ×2 (08:23→21:19)
[2016-10-03] MEDS: PANTOPRAZOLE SODIUM 40 MG TAB PO SCH (08:24)
[2016-10-03] MEDS: GABAPENTIN 100 MG CAP PO SCH ×2 (08:24→12:08)
[2016-10-03] MEDS: SENNOSIDES/DOCUSATE SODIUM TAB PO SCH ×2 (08:30→21:19)
[2016-10-03] MEDS: diphenhydrAMINE 25 MG CAP PO PRN (09:36)
[2016-10-03] MEDS: METOPROLOL SUCCINATE XR 100 MG TAB PO SCH (12:08)
[2016-10-03] MEDS: HYDROCODONE/APAP 10/325 TAB PO PRN ×2 (13:19→19:09)
[2016-10-03] MEDS: HYDROmorphONE/DILAUDID 1 MG/ML SYR IVP PRN (13:19)
--- NOTE | 2016-10-03 13:19 | HOSPPROG ---
Hospitalist Progress Note Assessment/Plan: 10/03/2016 at 1315 hours: Patient was discharge earlier today. At 1300 hours developed more diarrhea with temp 100.7, abdominal aching and some pain. I have stopped the discharge, restarted all orders, order BC xs2. Note her WBC has been declining since admission and is currently 15,000; an anemia is slowly developing yet maybe dilutional. Will check stool for blood, check BC results, and continue inpatient care. 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 CTA of the chest and abdomen show no evidence of a pulmonary embolus but do show possible obstipation constipation without signs of obstruction. Patient was admitted because of abdominal pain and found to be severely constipated and a partial ileus. Treatment with MiraLax and suppositories resulted in significant stool output and relief. Patient's pain has improved today. -uterine carcinoma metastatic to the lung with large pulmonary nodules and to bone with a T12 compression fracture, status post neurosurgical support. Per Oncology as note the pulmonary masses have increased in size despite the use of Doxil although overall it is felt that she is responding to Doxil. -obstipation constipation per findings of the CT scan. She has been given MiraLax and now is moving gas below. [place] that the abdominal pain is secondary to obstipation and constipation due to the increased need of narcotics due to her recent neurosurgical procedure. Today she felt improved in the a.m. but then had sudden increase in diarrhea abdominal pain and a low-grade temperature. Blood cultures were ordered. -leukocytosis, new: Admission white count 17984 fell to 16,000. Patient is afebrile and shows no signs of sepsis. This may be a leukemoid reaction but if she has a 2nd fever spike I suggest blood cultures antibiotics and check the stool for C difficile. -anemia with an admission hemoglobin 8.8 fell to 8.1. There is no signs of bleeding. There was no blood in the stool. This is probably dilutional and the anemia secondary to her chronic disease. -acute and chronic pain syndrome, narcotic dependent. Patient will be placed on a [employer] pump for pain relief at this time. She has good pain relief at this time and desires to be discharged on p.o. Vicodin which she believes can control her pain. -hypertension currently on losartan and metoprolol and in good control. -DVT prophylaxis: Patient is experiencing hemoptysis probably secondary to the enlarging pulmonary masses. Thus will not use Lovenox but only SCDs. -code status: Full Disposition: Discharge on 10/03 on Vicodin pain relief. Will stop the [employer] pump in the morning. Subjective: [place] well in the a.m. and then had a low-grade temperature in the afternoon before discharge. Thus the discharge was stopped and blood cultures were drawn. She is again having some abdominal pain. Objective: Vital Signs Temp Pulse Resp BP Pulse Ox 37.2 C 109 H 16 120/77 93 10/03/16 13:12 10/03/16 11:56 10/03/16 11:56 10/03/16 11:56 10/03/16 11:56 Microbiology 09/30/16 22:15 - Final Sputum, Expectorated Sputum Culture - Final Strep Agalactiae Group B 09/30/16 19:03 Urine Culture - Final Urine,Clean Catch Strep Agalactiae Group B Gram Neg Guevara Lactose Embedded Systems Software Engineer Two [place] Types Laboratory Results 10/03/16 04:10 10/03/16 04:10 10/02/16 10/03/16 10/04/16 05:59 05:59 05:59 Intake Total 1351 1200 200 Output Total 400 400 Balance 951 800 200 Laboratory Tests 09/30/16 10/01/16 10/02/16 20:30 03:30 05:00 WBC 21.65 H 16.53 H Hgb 8.8 L 8.1 L Albumin 3.6 10/03/16 10/03/16 04:10 04:10 WBC 15.89 H Hgb 7.7 L Albumin 2.8 L - Time Spent With Patient Time Spent with Patient: greater than 35 minutes Time Spent with Patient: Greater than 35 minutes spent on this patients care, greater than 50% of time spent counseling, educating, and coordinating care regarding the above mentioned plan. - Pending Discharge Pending Discharge Within 24 Hours: No Pending Discharge Within 48 Hours: Yes Pending Discharge Date: 10/05/16 Pending Discharge Time: 11:00 - Physical Exam Constitutional: chronically ill appearing, other (Experiencing abdominal pain.) Eyes: PERRL Ears, Nose, Mouth, Throat: moist mucous membranes Cardiovascular: regular rate and rhythym, no murmur, rub, or gallop Respiratory: reduced air movement, inspiratory crackles, bronchial breath sounds , rhonchi Gastrointestinal: normoactive bowel sounds, tenderness, other (Possible hyperactive bowel sounds. There is tenderness overall but no guarding or rebound.) Genitourinary: no bladder fullness Skin: warm Musculoskeletal: generalized weakness Neurologic: AAOx3, CN II-XII Intact ICD10 Worksheet Patient Problems: Problems Problem Status Onset Acute respiratory failure Acute Back pain Acute Uterine cancer Acute
--- NOTE | 2016-10-03 13:50 | SOAPPROG ---
SOAP Progress Note Assessment/Plan: Assessment: 1. metastatic uterine cancer (lung, bone), progressive pulmonary disease 2. T12 compression fracture s/p surgery 09/17 3. Abd pain - some diarrhea today and low grade temp Plan: further observation with BC pending, they are aware that pulmonary disease has worsened 10/03/16 13:48 Subjective: Some diarrhea, flare up of post surgical back pain Objective: Vital Signs Temp Pulse Resp BP Pulse Ox 98.9 F 109 H 16 120/77 93 10/03/16 13:12 10/03/16 11:56 10/03/16 11:56 10/03/16 11:56 10/03/16 11:56 Microbiology 09/30/16 22:15 - Final Sputum, Expectorated Sputum Culture - Final Strep Agalactiae Group B 09/30/16 19:03 Urine Culture - Final Urine,Clean Catch Strep Agalactiae Group B Gram Neg Guevara Lactose Photoengraving Etcher Two [place] Types Laboratory Results 10/03/16 04:10 10/03/16 04:10 10/02/16 10/03/16 10/04/16 05:59 05:59 05:59 Intake Total 1351 1200 200 Output Total 400 400 Balance 951 800 200 Physical Exam - Physical Exam General Appearance: mild distress Respiratory: normal breath sounds Cardiac/Chest: regular rate, rhythm Abdomen: normal bowel sounds, non-tender ICD10 Worksheet Patient Problems: Problems Problem Status Onset Acute respiratory failure Acute Back pain Acute Uterine cancer Acute
[2016-10-03] MEDS: GABAPENTIN 300 MG CAP PO SCH (21:19)
[2016-10-03] MEDS: LOSARTAN POTASSIUM 50 MG TAB PO SCH (21:19)
[2016-10-04] MEDS: HYDROCODONE/APAP 10/325 TAB PO PRN ×4 (01:15→11:33)
[2016-10-04] MEDS: GABAPENTIN 100 MG CAP PO SCH (07:41)
[2016-10-04] MEDS: FAMOTIDINE 20 MG TAB PO SCH (07:41)
[2016-10-04] MEDS: PANTOPRAZOLE SODIUM 40 MG TAB PO SCH (07:42)
[2016-10-04] MEDS: SENNOSIDES/DOCUSATE SODIUM TAB PO SCH (07:42)
[2016-10-04 08:51] VITALS: BP 110/47; PULSE 78; RESP 18; TEMP 98.1; O2SAT 100
[2016-10-04 09:49] LABS: % IMMATURE GRANULYOCYTES 0.6 % (0.0-1.1); ADD DIFF? NO; ADD MORPH? NO; ADD SCAN? NO; ATYPICAL LYMPHOCYTE FLAG 20 (0-99); FRAGMENT RBC FLAG 0 (0-99); HEMATOCRIT 26.9 % (38.0-47.0); HEMOGLOBIN 8.6 g/dL (12.6-16.3); LEFT SHIFT FLG 0 (0-99); LIPEMIA HEMOLYSIS FLAG 80 (0-99); MEAN CELL HEMOGLOBIN 29.7 pg (27.9-34.1); MEAN CELL VOLUME 92.8 fL (81.5-99.8); MEAN PLATELET VOLUME 8.4 fL (8.7-11.7); PLATELET CLUMPS FLAG 0 (0-99); PLATELET COUNT 544 10^3/uL (150-400); RED CELL DISTRIBUTION WIDTH 15.9 % (11.5-15.2)
[2016-10-04 10:30] LABS: ANION GAP 11 mEq/L (8-16); CALCIUM 8.9 mg/dL (8.5-10.4); CARBON DIOXIDE 30 mEq/l (22-31); CHLORIDE 98 mEq/L (97-110); CREATININE 0.7 mg/dL (0.6-1.0); GLOMERULAR FILTRATION RATE > 60; GLUCOSE 104 mg/dL (70-100); POTASSIUM 4.1 mEq/L (3.5-5.2); SODIUM 139 mEq/L (134-144)
--- NOTE | 2016-10-04 10:43 | PDIAF ---
- Diagnosis Diagnosis: uterine cancer Code Status: Full Code - Medication Management Discharge Medications: Medications to Continue on Transfer Levalbuterol 1.25 mg [Xopenex 1.25MG Neb (*)] 1.25 mg IH DAILY PRN 09/16/16 [ Last Taken 09/15/16] Losartan Potassium [Cozaar] 100 mg PO HS 09/16/16 [Last Taken 09/29/16] Metoprolol Succinate Xr [Toprol Xl 100 mg (*)] 100 mg PO DAILY@1200 09/16/16 [ Last Taken 09/30/16] diphenhydrAMINE HCL [Diphen] 25 - 50 mg PO BID PRN 09/16/16 [Last Taken 09/15/16 ] Gabapentin [Neurontin 300 MG (*)] 300 mg PO HS cap 09/22/16 [Last Taken ] Ondansetron Odt [Zofran Odt 4 mg (*)] 4 mg PO Q4HRS PRN #40 tab 09/22/16 [Last Taken Unknown] Pantoprazole Sodium [Protonix 40mg (*)] 40 mg PO DAILY #30 tab 09/22/16 [Last Taken 09/30/16] Famotidine [Pepcid 20 MG (*)] 20 mg PO BID 09/30/16 [Last Taken 09/30/16 08:00] Gabapentin [Neurontin 100 MG (*)] 100 mg PO BID@0900,1200 09/30/16 [Last Taken 09/30/16] Sennosides [Senokot] 2 tab PO HS 09/30/16 [Last Taken 09/29/16] Sennosides/Docusate Sodium [Senokot-S] 1 - 2 tab PO BID #20 tab 10/03/16 [Last Taken Unknown] Hydrocodone/Acetaminophen [[place] 10-325 Tablet] 1 each PO Q4 PRN #90 tablet [Last Taken Unknown] Discharge Medications: Refer to the Discharge Home Medication list for PRN reason. - Orders Services needed: Home Care, Physical Therapy Home Care Face to Face: I certify that this patient was under my care and that I had the required [id number] encounter meeting the encounter requirements on the discharge day. My findings support the fact that the patient is homebound as defined in CMS Chapter 7 Medicare Benefits Manual 30.1.1, The condition of the patient is such that there exists a normal inability to leave home and consequently, leaving home would require a considerable and taxing effort. Diet Recommendation: no restrictions on diet Diet Texture: Regular Texture Diet - Follow Up Care Current Providers and Referrals: Verónica Foster MD [Medical Doctor] - follow up in 1 week Swathi Bernal MD [Primary Care Provider] -
[2016-10-04] MEDS ORDERED: MAG HYDROX/AL HYDROX/SIMETH 30 ML UDCUP ONE (11:28)
[2016-10-04] MEDS ORDERED: MAG HYDROX/AL HYDROX/SIMETH 30 ML UDCUP PO PRN (11:28)
--- NOTE | 2016-10-05 00:11 | GDS ---
[f rep st] DISCHARGE SUMMARY DISCHARGE DIAGNOSES: 1. Metastatic uterine cancer, with metastases to lung and bone, with progressive pulmonary disease. 2. Improved obstipation. 3. Leukocytosis, without any obvious signs of infection. 4. Stable chronic anemia, most likely due to anemia of chronic disease, in the setting of her mandeep poole. 5. Acute on chronic pain syndrome due to metastatic uterine cancer. 6. Hypertension. CONSULTANTS: South Moon MD, Oncology. HOSPITAL COURSE AND STAY BY PROBLEM: Metastatic uterine cancer, with acute on chronic abdominal dontrell n: The patient was admitted to the hospital with pain. Her pain has been controlled with [place] 10/ 325 one tab every 4-6 hours. Initially, it was thought that she could be discharged on the ; ho wever, this was held after she had a bout of diarrhea and a low-grade temperature, which have since resolved. On day of discharge, the patient states she is feeling better, and would like to leave the hospital. Blood cultures were drawn on 10/03/2016, which are currently pending. PHYSICAL EXAM: VITAL SIGNS: On day of discharge, blood pressure 110/47, pulse 78, respiratory rate 18, O2 saturation 100% on 2 L. Temperature afebrile. GENERAL: No acute distress. HEART: S1, S2 . LUNGS: Clear. ABDOMEN: Soft. EXTREMITIES: No edema. PERTINENT LABS AND STUDIES: WBCs on day of discharge were 17.53, hemoglobin 8.6, hematocrit 26.9, p latelets 544. DISCHARGE MEDICATIONS: Please refer to discharge medication reconciliation in [facility] for full det ails. Below is a preliminary list. New medications on hospital discharge: [place] 10/325 one p.o. q.4-6 hours p.r.n. pain, prescription f or #90 were given, Senokot-S 1-2 tabs p.o. twice daily. All other home medications were continued at her usual dosages. Medications that have been discontinued: Tylenol and Dilaudid. DISCHARGE INSTRUCTIONS: The patient will be discharged from the hospital where she should follow up with Dr. Foster. She is to seek medical attention if she develops any recurrent fevers or diarrhea . She should have followup of her blood cultures that were drawn on 10/03/2016. Greater than 30 minutes were spent on the discharge of this patient. /[id number]/MODL
== END 2016-10-04 12:05 | disposition home health service (06) | DRG 755 ==
LOC: F3N 16:50 → INTOOBSV 17:09 → OBSVTOIN 17:09
PROVIDERS: ADMIT Internal Medicine; ATTEND Internal Medicine
DX: C55 Malignant neoplasm of uterus, part unspecified (principal); C79.51 Secondary malignant neoplasm of bone; C78.01 Secondary malignant neoplasm of right lung; C78.02 Secondary malignant neoplasm of left lung; J96.11 Chronic respiratory failure with hypoxia; D63.8 Anemia in other chronic diseases classified elsewhere; G89.29 Other chronic pain; I10 Essential (primary) hypertension; E03.9 Hypothyroidism, unspecified
CPT/HCPCS: 97162-GP; J1170; J1200; J1642; J1650; Q9967

== ENCOUNTER → 2016-09-30 | Outpatient (CLI) | payer OTHER | LOC: FIMAGING 12:37 | PROVIDERS: ATTEND Neurological Surgery | DX: Z09 Encounter for follow-up examination after completed treatment for conditions other than malignant neoplasm (principal); Z98.1 Arthrodesis status; C79.51 Secondary malignant neoplasm of bone; C54.1 Malignant neoplasm of endometrium ==

== ENCOUNTER → 2016-10-27 | Outpatient (CLI) | payer OTHER | LOC: FIMAGING 13:01 | PROVIDERS: ATTEND Physician Assistant Surgical | DX: S32.010A Wedge compression fracture of first lumbar vertebra, initial encounter for closed fracture (principal); S22.070A Wedge compression fracture of T9-T10 vertebra, initial encounter for closed fracture; Z98.1 Arthrodesis status ==

== ENCOUNTER 2016-10-28 12:15 | Inpatient (IN) | payer OTHER ==
--- NOTE | 2016-10-28 12:26 | EDPHY ---
H & P Stated Complaint: metastatic cancer/mets to spine/intractable pain Time Seen by Provider: 10/28/16 12:26 - Personal History Current Tetanus/Diphtheria Vaccine: Yes - Medical/Surgical History Hx Asthma: No Hx Chronic Respiratory Disease: No Hx Diabetes: No Hx Cardiac Disease: No Hx Renal Disease: No Hx Cirrhosis: No Hx Alcoholism: No Hx HIV/AIDS: No Hx Splenectomy or Spleen Trauma: No Other PMH: uterine CA w/ hyst 2004, endometrial. mets, lung and bone. left pleural effusion mar 2014. HTN. hyperthyroid 1999. [place]. Lung Biopsy 2012 - Social History Smoking Status: Never smoked Constitutional: Initial Vital Signs Temperature (C) 36.8 C 10/28/16 12:19 Heart Rate 115 H 10/28/16 12:19 Respiratory Rate 22 H 10/28/16 12:19 Blood Pressure 128/71 H 10/28/16 12:19 O2 Sat (%) 98 10/28/16 12:19 O2 Delivery Mode Nasal Cannula O2 (L/minute) 2 Allergies/Adverse Reactions: amoxicillin trihydrate [From Augmentin] Allergy (Intermediate, Verified 12:18) BLEEDING, HIVES morphine Allergy (Intermediate, Verified 10/28/16 12:18) dyspnea, flushing potassium clavulanate [From Augmentin] Allergy (Intermediate, Verified 10/28/16 12:18) BLEEDING, HIVES lactose Allergy (Mild, Verified 10/28/16 12:18) GI UPSET erythromycin base [Erythromycin Base] Allergy (Verified 10/28/16 12:18) oxycodone Allergy (Verified 10/28/16 12:18) oxycodone HCl [From Percocet] Allergy (Verified 10/28/16 12:18) Penicillins Allergy (Verified 10/28/16 12:18) Sulfa (Sulfonamide Antibiotics) Allergy (Verified 10/28/16 12:18) TAPE Allergy (Intermediate, Uncoded 04/09/14 13:10) BLISTERS BETADINE Allergy (Mild, Uncoded 04/09/14 13:10) Rash EGGPLANT Allergy (Mild, Uncoded 04/09/14 13:10) Hives IODINE CONTRAST Allergy (Mild, Uncoded 04/09/14 13:10) HIVES, ITCHY SHRIMP Allergy (Mild, Uncoded 04/09/14 13:10) Hives morph Allergy (Uncoded 06/05/14 13:45) morphine Allergy (Uncoded 06/05/14 13:45) Home Medications: Medication Instructions Recorded Levalbuterol 1.25 mg [Xopenex 1.25 mg IH DAILY PRN 09/16/16 1.25MG Neb (*)] Losartan Potassium [Cozaar] 100 mg PO HS 09/16/16 Metoprolol Succinate Xr [Toprol Xl 100 mg PO DAILY@1200 09/16/16 100 mg (*)] diphenhydrAMINE HCL [Diphen] 25 - 50 mg PO BID PRN 09/16/16 Gabapentin [Neurontin 300 MG (*)] 300 mg PO HS cap 09/22/16 Ondansetron Odt [Zofran Odt 4 mg 4 mg PO Q4HRS PRN #40 tab 09/22/16 (*)] Pantoprazole Sodium [Protonix 40mg 40 mg PO DAILY #30 tab 09/22/16 (*)] Famotidine [Pepcid 20 MG (*)] 20 mg PO BID 09/30/16 Gabapentin [Neurontin 100 MG (*)] 100 mg PO BID@0900,1200 09/30/16 Sennosides [Senokot] 2 tab PO HS 09/30/16 Sennosides/Docusate Sodium 1 - 2 tab PO BID #20 tab 10/03/16 [Senokot-S] Hydrocodone/Acetaminophen [[place] 1 each PO Q4 PRN #90 tablet 10/04/16 10-325 Tablet] Fentanyl 10/28/16 Medical Decision Making - Diagnostics Imaging Results: Imaging Impressions Humerus X-Ray 10/28/16 12:45 Impression: 1. Subtle periosteal reaction along the proximal left humeral diaphysis may be manifestation of early metastatic disease to the humerus. 2. No fracture or discrete pathologic lesion. 3. Metastatic disease to the left fifth rib and left lung apex is unchanged. Shoulder X-Ray 10/28/16 12:45 Impression: 1. No discernible new lytic lesion or fracture. 2. Left lateral fifth rib lytic metastasis and metastatic disease to the left lung are unchanged. Imaging: Discussed imaging studies w/ special client bus driver Radiologist ED Course/Re-evaluation: CHIEF COMPLAINT: Left shoulder pain HISTORY OF PRESENT ILLNESS: The patient is a 61 y/o female with active metastatic uterine cancer presenting with waxing and waning left shoulder pain worsening today. In 2004, she was diagnosed with Stage 1 uterine cancer and had a total hysterectomy. In 2012, the cancer reemerged and since then has metastasized to her lungs and spine. She has been managing her shoulder pain with [place] and Senokot since her last admission on September 30, 2016 but her home pain regime is no longer alleviating her pain. Today the shoulder pain now radiates to the superior half of her left thoracic spine and scapula. She denies any recent trauma. REVIEW OF SYSTEMS: A 10 point review of systems was performed and is negative with the exception of the elements mentioned in the history of present illness. PHYSICAL EXAM: HR, BP, O2 Sat, RR. Temp noted General Appearance: Alert, well hydrated, appropriate, thin and cachetic, tearful. Head: Atraumatic without scalp tenderness or obvious injury Eyes: Pupils equal, round, reactive to light and accommodation, EOMI, no trauma , no injection. Throat: Mucus membranes moist. Neck: Supple. Respiratory: No retractions, no distress, no wheezes, and no accessory muscle use. Lungs are clear to auscultation bilaterally. Cardiovascular: Left radial pulse intact. Regular rate and rhythm, no murmurs, rubs, or gallops. Good capillary refill all extremities. Gastrointestinal: Abdomen is soft, nontender, non-distended, no masses, no rebound, no guarding, no peritoneal signs. Musculoskeletal: Significant tenderness to left humerus. ROM deferred due to pain. Neurological: Alert, appropriate, and interactive. Non-focal Neuro exam. Skin: No rashes, good turgor, no nodules on palpation. Past medical history includes metastatic uterine cancer with metastasis to lungs and bones, leukocytosis, stable chronic anemia, acute onset chronic pain syndrome, hypertension, migraines. Past surgical history includes Uterine Cancer removal in 2004 and T12-L2 Laminectomy in September,. Family history: Non-contributory. 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 Past medical history was obtained using previous medical records: 09/30/16: Admitted for Metastatic uterine cancer and acute onset chronic abdominal pain. 09/17/16: T12-L2 laminectomy 04/09/14: Acutely worsening shortness of breath DIAGNOSTICS/PROCEDURES/CRITICAL CARE TIME: Shoulder and left humerus X-rays shows periosteal reaction to left humerus likely indicating early metastatic disease. DIFFERENTIAL DIAGNOSIS: The differential diagnosis for the patient's arm pain included but was not limited to metastatic disease, pathologic fracture, strain, sprain, and contusion. MEDICAL DECISION MAKING: This is a 61 y/o female with metastatic uterine cancer and known metastases to lungs and spine who presents with intractable left humeral pain onset this morning. She has exquisite tenderness over her left humerus and is neurovascularly intact. Plan for left shoulder and left humerus X-rays to rule out pathologic fracture and symptom management with 4 mg of IV Zofran and 1 mg IV Dilaudid. RN has orders to titrate Dilaudid to effect. X-rays show presumed early metastatic disease. Patient will require admission for intractable pain and oncological management. 1337: Consulted with patient's oncology office. Dr. Akins will follow patient 's admission and plans to evaluate for radiation therapy. 1345: Spoke with hospitalist service. Dr. Herring accepts the patient. 1440: Signed out patient care to Dr. Young at shift change. She is awaiting a room on the floor. Plan to continue pain management as needed. - Data Points Medications Given: Discontinued Medications Hydromorphone HCl (Dilaudid) 1 mg IVP EDNOW ONE Stop: 10/28/16 12:46 Last Admin: 10/28/16 12:59 Dose: 1 mg Hydromorphone HCl (Dilaudid) 1 mg IVP EDNOW ONE Stop: 10/28/16 14:11 Last Admin: 10/28/16 14:23 Dose: 1 mg Ondansetron HCl (Zofran) 4 mg IVP EDNOW ONE Stop: 10/28/16 13:01 Last Admin: 10/28/16 13:08 Dose: 4 mg Departure - Departure Disposition: [facility] Inpatient Acute Clinical Impression: Intractable pain, Metastatic disease, left humerus Condition: Fair Report Scribed for: Emir Cordova Report Scribed by: Maged Kelley Date of Report: 10/28/16 Time of Report: 12:27
[2016-10-28] MEDS ORDERED: ONDANSETRON 4 MG/2 ML VIAL ONE (12:32)
[2016-10-28] MEDS ORDERED: HYDROmorphONE/DILAUDID 1 MG/ML SYR ONE (12:33)
[2016-10-28] MEDS ORDERED: HYDROmorphONE/DILAUDID 1 MG/ML SYR IVP ONE ×3 (12:45→15:49)
[2016-10-28] MEDS ORDERED: ONDANSETRON 4 MG/2 ML VIAL IVP ONE (13:00)
[2016-10-28] MEDS ORDERED: DEXAMETHASONE 20 MG/5 ML MDV IV ONE (14:59)
[2016-10-28] MEDS ORDERED: HYDROcodone/CPM TUSSIONEX 5 ML UDSYR PO PRN (15:16)
[2016-10-28] MEDS ORDERED: DEXAMETHASONE 4 MG/ML VIAL ONE (15:17)
[2016-10-28] MEDS ORDERED: ONDANSETRON DISINTEGRATING 4 MG TAB PO PRN (15:46)
[2016-10-28] MEDS ORDERED: METOCLOPRAMIDE 10 MG/2 ML VIAL IVP PRN (15:46)
[2016-10-28] MEDS ORDERED: LORazepam 2 MG/ML INJ IVP PRN (15:46)
[2016-10-28] MEDS ORDERED: ACETAMINOPHEN 325 MG TAB PO PRN (15:46)
[2016-10-28] MEDS ORDERED: GABAPENTIN 100 MG CAP PO PRN (15:49)
[2016-10-28] MEDS ORDERED: NALOXONE HCL 0.4 MG/ML INJ IVP PRN (15:49)
[2016-10-28] MEDS ORDERED: fentaNYL 25 MCG PATCH TD SCH (16:00)
--- NOTE | 2016-10-28 16:05 | GCON ---
[f rep st] CONSULTATION NEW PATIENT CONSULTATION. REFERRING PHYSICIAN: Emergency Room REASON FOR CONSULTATION: Patient known to Dr. Foster and Dr. Akins, with metastatic endometrioid carcinoma. She presents with acute left shoulder and bilateral back pain. HISTORY OF PRESENT ILLNESS: The patient is a 61-year-old woman, whose history dates back to December 06. She was initially diagnosed with metastatic grade 2 endometrioid adenocarcinoma versus recurren t endometrioid tumor from an endometriosis implant. She initially had vaginal cuff disease, as well as pulmonary metastasis and a malignant pleural effusion. She was initially treated with 6 cycles of carboplatin and Taxol, and then continue Taxol as a single agent from May 2013 to October 2013. Treatment was held at that time, but she then progressed, and was started on Doxil in March 2014 through July of 2014. She received 5 cycles, and while she initially had a partial response to treatment, had to be discontinued due to significant toxicity with skin changes, blisters, and folli culitis. She had a trial of letrozole from August 2014 to June 2015. She was then resumed on sin gle agent Taxol starting in July 2015 through February 2016. Due to progressive disease, she w as started on single-agent Adriamycin in May of 2016. CT scans in July 2016 showed respons e to the Adriamycin with a decrease in size of pulmonary metastases. Unfortunately, she then develo ped a pathological fracture at L1, and associated neurologic deficits necessitating emergent neurosu rgery September 17, 2016. She had a T12 to L2 laminectomy. Surgery relieved the back pain and neurologi c symptoms. For pain control, she has currently been on a fentanyl patch 25 mcg, as well as p.r.n. hydrocodone. She has been taking 10/325 with a 5/325 every 4-6 hours. She has had followup with Neurosurgery, a nd hardware is intact. Today, she presented with acute left shoulder pain. This has been going on and off for 3-4 months, but it has been constant more recently. In addition, she has bilateral subs capular pain that is 10 out of 10. She cannot get pain relief with her current outpatient medicatio ns. She reports occasional hip pain, but this has not been persistent. The most recent abdominal C T I have from September 30, 2016, shows no evidence of metastatic disease. Her CT chest at this same ti me shows no embolic disease, metastatic lesions in the lower lobes increased, specifically progressi on of metastatic disease since the imaging 5 weeks prior, evidenced by increased size of numerous pu lmonary nodules and dominant right lower lobe mass. She has a left 5th rib metastasis that has lonnie ined unchanged. Her last Adriamycin was given on 09/02/2016. The patient reports that she was previously seen by Dr. Walton in 2013, but radiation was not recomme nded at that time. She has not had any radiation treatments. REVIEW OF SYSTEMS: As per HPI. Otherwise, denies any significant weight loss, fevers, night sweats . Respiratory status has not changed. She remains on 1-2 L of oxygen. PAST MEDICAL HISTORY: Endometrial cancer, as described above; hypercholesterolemia; hypertension; p eripheral neuropathy; history of neutropenia related to chemotherapy, dehydration; pain; and diarrhe a. FAMILY HISTORY: Noncontributory. MEDICATIONS: Have been reviewed. PHYSICAL EXAM: VITAL SIGNS: Today, vital signs show a blood pressure of 120/71, heart rate 115, re spiratory rate 22, O2 saturation 98% on 2 L, temp 36.8. GENERAL: A 61-year-old, woman, looks younger than her stated age. In acute distress secondary to pain. HEENT: Anicteric sclerae. HEA RT: Tachycardic. LUNGS: Clear anteriorly. ABDOMEN: Soft, nontender. Bowel sounds are positive. EXTREMITIES: Lower extremities, no significant edema. NEUROLOGIC: Did not do a neuro exam. SKI N: No rash. LABS: Today were not done, but were done yesterday showing a white blood cell count of 19.2, hemogl obin 8.2, hematocrit 26.8, platelet count of 580. CMP showed a sodium 137, potassium of 4, creatini ne 0.7, glucose 117, calcium 8.6, total bilirubin 0.5, AST 33, ALT 21, alkaline phosphatase elevated at 157. ASSESSMENT AND PLAN: A 61-year-old woman with metastatic endometrioid adenocarcinoma, with metastat ic disease to the bone, lung, and history of malignant pleural effusion. She most recently has been on 5th line therapy with Adriamycin. Last treatment with this was 09/02/2016. She presents with a cute pain of left upper arm and bilateral back pain. 1. Left shoulder pain and back pain. History of known bony metastases. Shoulder x-ray shows no di scernible new lytic lesion. Left lateral 5th rib lytic metastasis is unchanged. Humerus x-ray show s subtle periosteal reaction along proximal left humerus. May be manifestation of early metastatic disease. No fracture or discrete pathologic lesion. Given the fact patient has multiple areas of b giorgio pain, and the pain is intractable to home medications, she has been admitted for IV pain medicat ions and evaluation. I agree with a bone scan, as she has been unable to get a PET-CT as an outpati ent. This will give us an idea of where all the bony metastases arise, and possibilities for pallia tive radiation treatments. Certainly, being on recent Adriamycin, she is at risk for radiation reca ll. There is some evidence that steroids can improve this, and since steroids may also help her dontrell n, will start her on dexamethasone IV at this time. Will consult Radiation Oncology. 2. As far as metastatic endometrioid cancer, it looks like she is progressing in the lungs, with no evidence of disease in abdomen and pelvis. Her performance status is such that she has not been of fered another cycle of Adriamycin. Her CA-125 is rising. Certainly, need to get her pain under con trol and her performance status better before she pursues more chemo. She is not a clinical trial c andidate. 3. Pathologic fracture of L1, status post laminectomy, September 17, 2016. Will discuss with Radiation/ Oncology radiating this site to sterilize this field, as well. 4. Pain control. Recommend HEALTH SYSTEMS ANALYST, at this time, to get control of her pain, as well as IV dex. Will continue to follow along. /[id number]/MODL
[2016-10-28] MEDS: HYDROCODONE/APAP 5/325 TAB PO PRN (16:17)
[2016-10-28] MEDS: HYDROmorphONE/DILAUDID 6 MG/30 ML PCA IV PRN (16:26)
--- NOTE | 2016-10-28 16:50 | GHP ---
[f rep st] HISTORY AND PHYSICAL DATE OF ADMISSION: 10/28/2016 CHIEF COMPLAINT: Uncontrolled pain. HISTORY OF PRESENT ILLNESS: This is a 61-year-old female with metastatic endometrioid cancer who pr esents with pain. She has chronic pain, however, her pain over the past few days is worse. It vinny me unbearable today. It is mostly located in her left shoulder which is a new location for her. Rajani anglin has ongoing pain in her abdomen. Pain is worse in her abdomen when she is coughing. She takes no rmally a fentanyl patch at 25 mcg/hour, in addition to [place], 15 mg of hydrocodone q.4 hours as need ed. This has not controlled her pain. She has had some nausea but no vomiting. She also notes сергей t she has a pressure injury on her buttocks. PAST MEDICAL/SURGICAL HISTORY: 1. Endometrioid cancer status post hysterectomy with metastatic disease. 2. Hypertension. 3. Hypothyroid. 4. Lung biopsy. 5. Hyperlipidemia. 6. 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 MEDICATIONS: Please see medication reconciliation. ALLERGIES: She has multiple allergies including amoxicillin, morphine, potassium, erythromycin, oxy codone, penicillin, sulfa, tape, Betadine, eggplant, iodine contrast, shrimp. FAMILY HISTORY: Coronary artery disease. SOCIAL HISTORY: She is . 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 Her is also a retired physici an. 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 They have 2 children. REVIEW OF SYSTEMS: A 10-point review of systems is conducted and is negative except per HPI. PHYSICAL EXAM: VITAL SIGNS: Blood pressure 173/78, heart rate 115, respiration rate 20, saturating at 95% on 2.5 L, temperature is 37.0. GENERAL: The patient appears quite uncomfortable coughing a nd somewhat tearful while I am examining her. HEENT: Shows her to be normocephalic, atraumatic. C ARDIOVASCULAR: Shows regular rate and rhythm. No murmurs, rubs, or gallops. PULMONARY: Shows kamilah gs clear to auscultation bilaterally. ABDOMEN: Soft. It is mildly tender to palpation diffusely. SKIN: Shows no rash. : Shows no Hope. NEUROLOGIC: Shows her to be alert and oriented x3. S he is moving all extremities. PSYCHIATRIC: Shows normal mood and affect. LABS: White count is 19.26, hemoglobin is 8.2, platelets are 580. Basic metabolic panel is normal. Alk phos is 157. Albumin is 3.2. DATA: 1. I discussed this with Dr. Restrepo. We will start steroids. 2. Shoulder x-ray shows no discernible new lytic lesion or fracture. Left lateral 5th rib lytic di sease. 3. Humerus x-ray shows subtle periosteal reaction which may be early metastatic disease. IMPRESSION AND PLAN: A 61-year-old female with metastatic endometrioid cancer presents with uncontr olled pain. 1. Uncontrolled pain. This is due to metastatic disease. She also does have some chronic pain. I discussed with Dr. Restrepo. We will start a ENTERTAINMENT MUSICIAN tonight. Will also start IV steroids. Dr. Parkerin son has ordered a bone scan so we can consider palliative chemotherapy. Will also consider her synchronous motor assembler matthew pain medications including fentanyl patch, as well as [place]. 2. Pressure injury, present on arrival: Wound Care consult has been ordered. 3. History of endometrioid cancer: She has failed multiple rounds of chemotherapy. Appreciate car e by Dr. Restrepo. 4. Hypertension: Will continue her antihypertensives. Her uncontrolled hypertension now is due to missing her metoprolol this morning as well as uncontrolled pain. 5. Tachycardia: Likely due to pain as well as not taking her metoprolol. We will follow closely. 6. Hypothyroid. 7. Code status: She would like to be full code, full tube. She has a living will in our system. 8. Venous thromboembolism risk: She is high risk. I have written her to have Lovenox. /[id number]/MODL
[2016-10-28] MEDS: METOPROLOL SUCCINATE XR 100 MG TAB PO SCH (17:28)
[2016-10-28] MEDS: NS 1,000 ML IV SCH (17:34)
[2016-10-28] MEDS ORDERED: NON-FORMULARY NEW DRUG (Losartan Potassium [Losartan Potassium] 100 MG) PO SCH (21:00)
[2016-10-28] MEDS: SENNOSIDES 1 TAB PO SCH (21:13)
[2016-10-28] MEDS: DEXAMETHASONE 4 MG/ML VIAL IVP SCH (21:13)
[2016-10-28] MEDS: GABAPENTIN 300 MG CAP PO SCH ×2 (21:13→21:14)
[2016-10-28] MEDS: LOSARTAN POTASSIUM 50 MG TAB PO SCH (21:13)
[2016-10-28] MEDS: FAMOTIDINE 20 MG TAB PO SCH (21:14)
[2016-10-29] MEDS: NS 1,000 ML IV SCH ×2 (05:42→19:29)
[2016-10-29 06:00] LABS: % IMMATURE GRANULYOCYTES 1.2 % (0.0-1.1); ADD DIFF? NO; ADD MORPH? NO; ADD SCAN? NO; ATYPICAL LYMPHOCYTE FLAG 10 (0-99); FRAGMENT RBC FLAG 0 (0-99); HEMATOCRIT 26.7 % (38.0-47.0); HEMOGLOBIN 8.1 g/dL (12.6-16.3); LEFT SHIFT FLG 0 (0-99); LIPEMIA HEMOLYSIS FLAG 80 (0-99); MEAN CELL HEMOGLOBIN 28.5 pg (27.9-34.1); MEAN CELL HEMOGLOBIN CONCENTR. 30.3 g/dL (32.4-36.7); MEAN PLATELET VOLUME 8.6 fL (8.7-11.7); PLATELET CLUMPS FLAG 10 (0-99); PLATELET COUNT 634 10^3/uL (150-400); RED BLOOD CELL COUNT 2.84 10^6/uL (4.18-5.33); RED CELL DISTRIBUTION WIDTH 17.5 % (11.5-15.2)
[2016-10-29 06:18] LABS: ANION GAP 12 mEq/L (8-16); CALCIUM 8.2 mg/dL (8.5-10.4); CARBON DIOXIDE 28 mEq/l (22-31); CHLORIDE 99 mEq/L (97-110); CREATININE 0.6 mg/dL (0.6-1.0); GLOMERULAR FILTRATION RATE > 60; GLUCOSE 139 mg/dL (70-100); POTASSIUM 4.7 mEq/L (3.5-5.2); SODIUM 139 mEq/L (134-144)
[2016-10-29] MEDS: FAMOTIDINE 20 MG TAB PO SCH ×2 (07:37→19:31)
[2016-10-29] MEDS: PANTOPRAZOLE SODIUM 40 MG TAB PO SCH (07:37)
[2016-10-29] MEDS: HYDROmorphONE/DILAUDID 6 MG/30 ML PCA IV PRN (08:32)
[2016-10-29] MEDS: METOPROLOL SUCCINATE XR 100 MG TAB PO SCH (08:33)
[2016-10-29] MEDS: DEXAMETHASONE 4 MG/ML VIAL IVP SCH ×2 (08:33→19:59)
--- NOTE | 2016-10-29 12:23 | SOAPPROG ---
SOAP Progress Note Assessment/Plan: Assessment: 1) Metastatic uterine cancer 2) Worsening bone pain. 3) Recent h/o L1 pathologic fracture s/p neurosurgical intervention 09/17 Plan: Patient more comfortable on Fentanyl patch, Dilaudid DRUG AND ALCOHOL TREATMENT SPECIALIST , and Dexamethasone. She is scheduled to get a bone scan today to evaluate for bone lesions as source of her pain. Plan Radiation Oncology consult Monday for palliative XRT if bone lesions are identified. She would benefit from XRT to L1 surgical site as well. Plan to remain inpatient over the weekend for pain control. She continues to require Dilaudid DRUG AND ALCOHOL TREATMENT SPECIALIST to control her pain. Lovenox 40 mg QD for DVT prophylaxis. Plan d/w patient, , Dr. Gudino 10/29/16 12:20 10/29/16 12:23 10/29/16 12:25 Subjective: Feels better since admission. Pain now controlled with DRUG AND ALCOHOL TREATMENT SPECIALIST. at bedside. Objective: Vital Signs Temp Pulse Resp BP Pulse Ox 36.7 C 78 16 122/52 H 100 10/29/16 11:25 10/29/16 11:25 10/29/16 11:25 10/29/16 11:25 10/29/16 11:25 Laboratory Results 10/29/16 05:42 10/29/16 05:42 10/28/16 10/29/16 10/30/16 05:59 05:59 05:59 Intake Total 2269 Balance 2269 - Time Spent With Patient Time Spent With Patient: 25 minutes Physical Exam - Physical Exam General Appearance: alert, no apparent distress EENT: PERRL/EOMI Neuro/Psych: alert, normal mood/affect ICD10 Worksheet Patient Problems: Problems Problem Status Onset Intractable pain Acute Metastatic disease Acute Acute respiratory failure Acute Back pain Acute Uterine cancer Acute
[2016-10-29] MEDS: ONDANSETRON 4 MG/2 ML VIAL IVP PRN (14:24)
[2016-10-29] MEDS: ENOXAPARIN 40 MG/0.4 ML SYR SC SCH (14:40)
[2016-10-29] MEDS: SENNOSIDES 1 TAB PO SCH (19:59)
[2016-10-29] MEDS: LOSARTAN POTASSIUM 50 MG TAB PO SCH (19:59)
--- NOTE | 2016-10-29 20:37 | HOSPPROG ---
Hospitalist Progress Note Assessment/Plan: The patient is a 61-year-old female with PMH metastatic endometrial cancer who was admitted for uncontrolled pain. ASSESSMENT/PLAN: Uncontrolled pain secondary to metastases Left shoulder pain Back pain Stage IV endometrioid cancer with metastases to bones L1 pathologic fracture, status post laminectomy 09/17/16 Debility and deconditioning, secondary to above Pressure injury, present on arrival Hypertension Hypothyroidism -current pain med regimen appears to be helping patient. Includes dexamethasone. -bone scan today, if lytic lesions are found to be causing her symptoms, will plan for palliative radiation on Monday. -remain inpatient for pain control and medication adjustment. -counseled patient about anticoagulation for DVT prophylaxis. She reports history of hemoptysis with blood-tinged sputum when she has coughing spells. Risk of VTE is higher than risk of significant bleed. VTE prophylaxis: Lovenox. Patient 1 to skip her dose today because she feels unwell. Code Status: Full code Status: Inpatient Disposition: Oncology unit This patient is new to me. Reviewed patient's chart/records for this visit. Personally discussed case with RN and and oncologist and pharmacist. ____ SUBJECTIVE: Today patient continues to complain of pain throughout, mostly left shoulder and some GI upset. She denies any constipation currently. OBJECTIVE: Physical Exam: General: The patient is a middle-aged female who is alert and in mild acute distress. HEENT: normocephalic, extraocular movements intact, conjunctivae clear. Mucous membranes moist. Neck: trachea midline, no visible masses. CV: +S1/S2, RRR, no MRG. Resp: unlabored, CTAB no RRW. Abd: soft and nondistended. Bowel sounds present. Mildly tender throughout. Musculoskeletal: Normal muscle tone/bulk. Neuro: cranial nerves II XII grossly intact. Intact gross motor and sensory function. Psych: Appropriate mood and appropriate affect. Skin: Mild pallor. No petechiae. Heme/lymph: No peripheral edema at bilateral lower extremities. Labs/Imaging/Other Tests: Personally reviewed/interpreted. Objective: Vital Signs Temp Pulse Resp BP Pulse Ox 36.6 C 87 16 145/75 H 100 10/29/16 20:12 10/29/16 20:12 10/29/16 20:12 10/29/16 20:12 05/13/17 20:12 Laboratory Results 10/29/16 05:42 10/29/16 05:42 10/28/16 10/29/16 10/30/16 05:59 05:59 05:59 Intake Total 2269 1450 Output Total 650 Balance 2269 800 ICD10 Worksheet Patient Problems: Problems Problem Status Onset Intractable pain Acute Metastatic disease Acute Acute respiratory failure Acute Back pain Acute Uterine cancer Acute
[2016-10-29] MEDS: GABAPENTIN 300 MG CAP PO SCH (22:01)
[2016-10-30] MEDS: HYDROCODONE/APAP 5/325 TAB PO PRN (02:15)
[2016-10-30] MEDS: HYDROmorphONE/DILAUDID 6 MG/30 ML PCA IV PRN (02:59)
[2016-10-30] MEDS: HYDROCODONE/APAP 10/325 TAB PO PRN ×2 (07:16→13:50)
[2016-10-30] MEDS: DEXAMETHASONE 4 MG/ML VIAL IVP SCH ×2 (08:10→21:06)
[2016-10-30] MEDS: METOPROLOL SUCCINATE XR 100 MG TAB PO SCH (08:10)
[2016-10-30] MEDS: FAMOTIDINE 20 MG TAB PO SCH ×2 (08:10→21:07)
[2016-10-30] MEDS: PANTOPRAZOLE SODIUM 40 MG TAB PO SCH (08:10)
[2016-10-30] MEDS: NS 1,000 ML IV SCH ×2 (08:16→21:46)
[2016-10-30] MEDS: diphenhydrAMINE 25 MG CAP PO PRN (08:16)
[2016-10-30] MEDS: ENOXAPARIN 40 MG/0.4 ML SYR SC SCH (10:56)
--- NOTE | 2016-10-30 13:09 | WOCRNPDOC ---
WOCRN Advanced Assessment Note - Skin Integrity Problem, Advanced Assess Lower Back Scab Dressing Type: Open to Air Right Sacrum Pressure Injury Dressing Type: Allevyn Life Dressing Description: Intact Exudate Amount: Minimal Exudate Characteristic(s): Serosanguinous Integumentary Issue Intervention: Dressing Applied (skinprep, Hydrofera Blue Ready foam, steristrips, Allevyn sacrum), Dressing Initialed & Dated Stephani Wound Tissue: Intact Stephani Wound Swelling: None Wound Bed Color: Red Wound Bed Constitution: Smooth Tissue Wound Edges: Attached, Well Defined Site Odor: None Site Measurement - Head-to-Toe Length X Width X Depth (cm): 3.9 x 2.2 x 0.3 Pressure Injury Stage: Stage 3 Pressure Injury Present on Admit: Yes (Patient and report had been "putting Neosporin on it at home.") Skin Integrity Problem Comment: Patient verbalizes feeling "embarrassed" about getting a pressure injury, explains that she has had "so much pain it's hard to move." Ensured that she had adequate pain managment prior to assessment and dressing change. Site is completely clean, non-granulating tissue; resembles a Stage 2 injury except for an area near the 8-9 o'clock aspect of the base which is showing approximately 1 cm patricia slightly deeper area with possible exposure of subcutaneous adipose. After rinsing wound with sterile NS, placed Hydrofera Blue Ready foam into base secured with steristrips, skin prep to periwound, and protected with sacrum dressing. Educated patient and about care, about home care plan. Responded to questions. Staff RNs had initiated turn schedule and air seat cushion. P-500 surface ordered. organ pipe maker metal Melissa present for care.
--- NOTE | 2016-10-30 13:19 | SOAPPROG ---
SOAP Progress Note Assessment/Plan: Assessment: 1) Metastatic uterine cancer 2) Worsening pain (Likely from Left apical lung tumor) 3) Recent h/o L1 pathologic fracture s/p neurosurgical intervention 09/17 4) Sacral pressure ulcer (wound care involved) 5) Chemotherapy induced anemia Plan: Her bone scan does not show a high volume of bone metastasis. Specifically there is no lesion in the left humerus or scapula to account for her pain. I reviewed these findings with the patient and her . I suspect that her Left shoulder pain may represent referred pain from a known Left apical lung mass (3.1 cm on October 03 CT). This would not likely respond well to radiation. I do not think that there is a role for radiation in the palliation of her pain. This is a difficult situation. Her pain seems to be related to tumor progression. I have suggested increasing her Fentanyl patch to 50 mcg in an attempt to better control her pain. We discussed goals of care. She is very hopeful that with better pain control her performance status will improve to the point that she can resume chemotherapy. She and her are realistic about her disease and the palliative intent of treatment. We discussed that if her performance status does not improve over the next few week , transitioning to palliative care may be appropriate. She would benefit from eventual XRT to L1 lesion if things improve to the point that systemic therapy can be resumed. Above discussed with patient and . Ther questions were answered. 10/30/16 13:04 10/30/16 13:20 10/30/16 13:20 Subjective: Still having Left shoulder pain. Bone scan completed yesterday Objective: Vital Signs Temp Pulse Resp BP Pulse Ox 36.8 C 76 16 142/72 H 98 10/30/16 10:08 10/30/16 12:05 10/30/16 12:05 10/30/16 12:05 10/30/16 12:05 Laboratory Results 10/29/16 05:42 10/29/16 05:42 10/29/16 10/30/16 10/31/16 05:59 05:59 05:59 Intake Total 2269 2822.5 Output Total 650 Balance 2269 2172.5 - Time Spent With Patient Time Spent With Patient: 25 minutes Physical Exam - Physical Exam General Appearance: no apparent distress, other (Somewhat frail appearing female ) EENT: PERRL/EOMI Respiratory: lungs clear Cardiac/Chest: regular rate, rhythm Abdomen: non-tender, soft Neuro/Psych: alert, normal mood/affect ICD10 Worksheet Patient Problems: Problems Problem Status Onset Intractable pain Acute Metastatic disease Acute Acute respiratory failure Acute Back pain Acute Uterine cancer Acute
[2016-10-30] MEDS: fentaNYL 50 MCG PATCH TD SCH (13:51)
--- NOTE | 2016-10-30 18:53 | HOSPPROG ---
Hospitalist Progress Note Assessment/Plan: The patient is a 61-year-old female with PMH metastatic endometrioid cancer who was admitted for uncontrolled pain. ASSESSMENT/PLAN: Pain secondary to metastases, slowly improving Left shoulder pain Back pain Stage IV endometrioid cancer with metastases to bones/lung L1 pathologic fracture, status post laminectomy 09/17/16 Debility and deconditioning, secondary to above Pressure injury, present on arrival Hypertension Hypothyroidism -current pain med regimen appears to be helping patient. Includes dexamethasone. Palliative medicine consult for help with comfort. -bone scan did not reveal lesions for palliative radiation -remain inpatient for pain control and medication adjustment. -VTE prophylaxis: Lovenox. Status: Inpatient Disposition: Oncology unit - plan to DC to home under care of her / brother this week. ____ SUBJECTIVE: Today patient continues to complain of pain throughout, mostly left shoulder and some GI upset. She is getting a new bed for her bedsore. OBJECTIVE: Physical Exam: General: The patient is a middle-aged female who is alert and in no acute distress. HEENT: normocephalic, extraocular movements intact, conjunctivae clear. Mucous membranes moist. Neck: trachea midline, no visible masses. CV: +S1/S2, RRR, no MRG. Resp: unlabored, CTAB no RRW. Abd: soft and mildly distended. Bowel sounds present. Tender throughout. Musculoskeletal: Normal muscle tone/bulk. Neuro: cranial nerves II XII grossly intact. Intact gross motor and sensory function. Psych: Appropriate mood and appropriate affect. Skin: Mild pallor. No petechiae. Heme/lymph: No peripheral edema at bilateral lower extremities. Labs/Imaging/Other Tests: Bone scan results noted. Objective: Vital Signs Temp Pulse Resp BP Pulse Ox 36.7 C 88 18 154/65 H 100 10/30/16 16:05 10/30/16 16:05 10/30/16 16:05 10/30/16 16:05 10/30/16 16:05 Laboratory Results 10/29/16 05:42 10/29/16 05:42 10/29/16 10/30/16 10/31/16 05:59 05:59 05:59 Intake Total 2269 2822.5 1145 Output Total 650 950 Balance 2269 2172.5 195 ICD10 Worksheet Patient Problems: Problems Problem Status Onset Intractable pain Acute Metastatic disease Acute Acute respiratory failure Acute Back pain Acute Uterine cancer Acute
[2016-10-30] MEDS: SENNOSIDES 1 TAB PO SCH (21:06)
[2016-10-30] MEDS: LOSARTAN POTASSIUM 50 MG TAB PO SCH (21:07)
[2016-10-30] MEDS: GABAPENTIN 300 MG CAP PO SCH (21:14)
[2016-10-31] MEDS: HYDROCODONE/APAP 10/325 TAB PO PRN ×2 (01:32→20:10)
[2016-10-31] MEDS: HYDROmorphONE/DILAUDID 6 MG/30 ML PCA IV PRN (01:34)
[2016-10-31] MEDS: PANTOPRAZOLE SODIUM 40 MG TAB PO SCH (10:14)
[2016-10-31] MEDS: DEXAMETHASONE 4 MG/ML VIAL IVP SCH ×2 (10:14→20:09)
[2016-10-31] MEDS: ENOXAPARIN 40 MG/0.4 ML SYR SC SCH (10:15)
[2016-10-31] MEDS: FAMOTIDINE 20 MG TAB PO SCH ×2 (10:15→20:10)
[2016-10-31] MEDS: METOPROLOL SUCCINATE XR 100 MG TAB PO SCH (10:21)
[2016-10-31] MEDS: HYDROCODONE/APAP 5/325 TAB PO PRN (10:26)
--- NOTE | 2016-10-31 10:45 | SOAPPROG ---
SOAP Progress Note Assessment/Plan: Assessment: 1. Metastatic endometrial cancer (lung, bones) 2. Pain due to cancer, elliot ANNA lung metastasis 3. Anemia due to cancer Plan: - will add PO dilaudid to use instead of RETAIL BANKING MANAGER- would facilitate getting her home - I again talked to her about her prognosis, which is poor, and the low probability that she will recover to the point where chemotherapy would be well tolerated. I think hospice would be most appropriate at this point. She is willing at least to have a palliative consult. 25 min w/ pt and in coordination of care. d/w dr cisneros 10/31/16 10:43 Subjective: pain somewhat better controlled. Objective: exam: chronically ill, mildly cushingoid Lungs CTAb CV RRR no MGR Abd: +BS NT nD Ext: 1+ edema Neuro: a+ox3. Vital Signs Temp Pulse Resp BP Pulse Ox 36.2 C 103 H 21 H 163/82 H 97 10/31/16 08:00 10/31/16 10:21 10/31/16 08:00 10/31/16 10:21 10/31/16 08:00 Laboratory Results 10/29/16 05:42 10/29/16 05:42 10/30/16 10/31/16 11/01/16 05:59 05:59 05:59 Intake Total 2822.5 1495 909.5 Output Total 650 1850 600 Balance 2172.5 -355 309.5 ICD10 Worksheet Patient Problems: Problems Problem Status Onset Intractable pain Acute Metastatic disease Acute Acute respiratory failure Acute Back pain Acute Uterine cancer Acute
[2016-10-31] MEDS: NS 1,000 ML IV SCH ×2 (11:55→23:59)
[2016-10-31] MEDS ORDERED: BISACODYL 10 MG SUPP PR PRN (16:46)
[2016-10-31] MEDS ORDERED: MAGNESIUM HYDROXIDE 30 ML UDCUP PO PRN (16:46)
[2016-10-31] MEDS ORDERED: LACTULOSE 20 GM/30 ML UDCUP PO PRN (16:46)
[2016-10-31] MEDS ORDERED: POLYETHYLENE GLYCOL 3350 17 GM PKT PO PRN (16:46)
--- NOTE | 2016-10-31 16:52 | HOSPPROG ---
Hospitalist Progress Note Assessment/Plan: 61-year-old female with PMH metastatic endometrial carcinoma who was admitted due to uncontrolled pain in her shoulder and in her back. Patient is new to me today - pain secondary to bony metastases which is under moderately good control. We have implemented long-term narcotic medication and is improving. pain is in her left shoulder and in her back. L1 pathologic fracture status post laminectomy on 09/17/2016. pain control is narcotic dependent. Note that a bone scan did not reveal any bone lesions amenable to radiation therapy for relief of pain. 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 She has had hemoptysis on a previous admission but none at this time. Oncology note is appreciated. Patient is in a very weakened state and would likely not tolerate chemotherapy in this current state. - stage II sacral pressure decubitus ulceration POA. Currently under treatment - debility and deconditioning secondary to metastatic carcinoma - VTE prophylaxis: Lovenox. - Code: Full code - disposition: Date and time are unknown yet she will go home with her / brother this week. I discussed the situation with her , Enrike, and with Oncology. There is a general agreement that she is unlikely to improve to the level of being able to tolerate further chemotherapy. She has family who will be coming to [place] over the [facility] weekend would like to see them. A palliative care consult has been ordered. As we are no longer able to offer further medical care other than comfort the patient's situation is nearing the level of hospice care. her is accepting of this though desires only a palliative consult at this time. Plan: Continue pain management with long-acting narcotic medication, skin care to the decubitus ulcer, and a palliative care consultation. time 40 minutes in conference with the and with Oncology. Subjective: Reports she still has some pain and cough. Cough is without hemoptysis. There is no fever chills nausea or vomiting Objective: Vital Signs Temp Pulse Resp BP Pulse Ox 36.6 C 81 20 158/75 H 97 10/31/16 12:35 10/31/16 14:20 10/31/16 14:20 10/31/16 14:20 10/31/16 14:20 Laboratory Results 10/29/16 05:42 10/29/16 05:42 10/30/16 10/31/16 11/01/16 05:59 05:59 05:59 Intake Total 2822.5 1495 909.5 Output Total 650 1850 900 Balance 2172.5 -355 9.5 - Time Spent With Patient Time Spent with Patient: greater than 35 minutes Time Spent with Patient: Greater than 35 minutes spent on this patients care, greater than 50% of time spent counseling, educating, and coordinating care regarding the above mentioned plan. - Pending Discharge Pending Discharge Within 24 Hours: No Pending Discharge Within 48 Hours: Yes Pending Discharge Date: 11/02/16 Pending Discharge Time: 11:00 - Physical Exam Constitutional: chronically ill appearing Eyes: PERRL Ears, Nose, Mouth, Throat: moist mucous membranes Cardiovascular: regular rate and rhythym, no murmur, rub, or gallop Respiratory: reduced air movement, inspiratory crackles, bronchial breath sounds , dullness to percussion, rhonchi Gastrointestinal: normoactive bowel sounds, soft, non-tender abdomen Genitourinary: no bladder fullness Skin: warm Musculoskeletal: generalized weakness Neurologic: AAOx3, CN II-XII Intact Psychiatric: interacting appropriately ICD10 Worksheet Patient Problems: Problems Problem Status Onset Acute respiratory failure Acute Back pain Acute Uterine cancer Acute Intractable pain Acute Metastatic disease Acute
[2016-10-31] MEDS: HYDROmorphONE/DILAUDID 2 MG TAB PO PRN (17:41)
[2016-10-31] MEDS: LOSARTAN POTASSIUM 50 MG TAB PO SCH (20:09)
[2016-10-31] MEDS: SENNOSIDES 1 TAB PO SCH (20:10)
[2016-10-31] MEDS: ONDANSETRON 4 MG/2 ML VIAL IVP PRN (20:19)
[2016-10-31] MEDS: GABAPENTIN 300 MG CAP PO SCH (20:25)
[2016-11-01] MEDS: HYDROmorphONE/DILAUDID 6 MG/30 ML PCA IV PRN (05:13)
[2016-11-01] MEDS: diphenhydrAMINE 25 MG CAP PO PRN (05:17)
[2016-11-01] MEDS: FAMOTIDINE 20 MG TAB PO SCH ×2 (06:07→20:53)
[2016-11-01 06:22] LABS: % IMMATURE GRANULYOCYTES 1.1 % (0.0-1.1); ABSOLUTE IMMATURE GRANULOCYTES 0.28 10^3/uL (0.00-0.10); ADD DIFF? NO; ADD MORPH? NO; ADD SCAN? NO; ATYPICAL LYMPHOCYTE FLAG 0 (0-99); FRAGMENT RBC FLAG 10 (0-99); HEMOGLOBIN 7.9 g/dL (12.6-16.3); LEFT SHIFT FLG 10 (0-99); LIPEMIA HEMOLYSIS FLAG 80 (0-99); MEAN CELL HEMOGLOBIN 29.3 pg (27.9-34.1); MEAN CELL HEMOGLOBIN CONCENTR. 31.6 g/dL (32.4-36.7); MEAN CELL VOLUME 92.6 fL (81.5-99.8); MEAN PLATELET VOLUME 8.7 fL (8.7-11.7); PLATELET CLUMPS FLAG 0 (0-99); PLATELET COUNT 626 10^3/uL (150-400); RED CELL DISTRIBUTION WIDTH 17.4 % (11.5-15.2)
[2016-11-01 07:03] LABS: ANION GAP 11 mEq/L (8-16); CALCIUM 8.1 mg/dL (8.5-10.4); CARBON DIOXIDE 28 mEq/l (22-31); CHLORIDE 98 mEq/L (97-110); CREATININE 0.6 mg/dL (0.6-1.0); GLOMERULAR FILTRATION RATE > 60; GLUCOSE 125 mg/dL (70-100); SODIUM 137 mEq/L (134-144)
[2016-11-01] MEDS: HYDROCODONE/APAP 10/325 TAB PO PRN ×3 (10:03→23:45)
[2016-11-01] MEDS: DEXAMETHASONE 4 MG/ML VIAL IVP SCH ×2 (10:06→20:54)
[2016-11-01] MEDS: ENOXAPARIN 40 MG/0.4 ML SYR SC SCH (10:50)
[2016-11-01] MEDS: METOPROLOL SUCCINATE XR 100 MG TAB PO SCH (10:50)
[2016-11-01] MEDS: PANTOPRAZOLE SODIUM 40 MG TAB PO SCH (10:50)
--- NOTE | 2016-11-01 15:17 | HOSPPROG ---
Hospitalist Progress Note Assessment/Plan: 61-year-old female with PMH metastatic endometrial carcinoma who was admitted due to uncontrolled pain in her shoulder and in her back. Today the patient persists with unresolved pain in her left shoulder and in her low lumbar sacral region. - pain secondary to bony metastases which is under moderately good control. We have implemented long-term narcotic medication And are using a FUEL INJECTION SERVICER pump. pain is in her left shoulder and in her back. L1 pathologic fracture status post laminectomy on 09/17/2016. pain control is narcotic dependent. Note that a bone scan did not reveal any bone lesions amenable to radiation therapy for relief of pain. 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 She has had hemoptysis on a previous admission but none at this time. Oncology note is appreciated. Patient is in a very weakened state and would likely not tolerate chemotherapy in this current state. - stage II sacral pressure decubitus ulceration POA. Currently under treatment - debility and deconditioning secondary to metastatic carcinoma - VTE prophylaxis: Lovenox. - Code: Full code - disposition: Palliative care consultation today or tomorrow and possible discharge tomorrow to hospice care inpatient. Once again I have discussed the situation with her Enrike, there friend Nathan foreman, and with the palliative care team. There is a general agreement that she is unlikely to improve to the level of being able to tolerate further chemotherapy. She has family who will be coming to [place] over the [facility] would like to see them. Palliative Care has resolved matter to the fact that she may be moved to inpatient hospice. Hospice consultation has been ordered. As we are no longer able to offer further medical care other than comfort the patient's situation is nearing the level of hospice care. Consultation is pending today or tomorrow. Plan: Continue pain management with long-acting narcotic medication, skin care to the decubitus ulcer, and a palliative care consultation. time 40 minutes in conference with the , Nursing, and with the palliative care team. Subjective: Reports she continues to have pain in her shoulder or growth though it is improved and pain in her lower back. Cough is persistent without hemoptysis. She denies pleuritic chest pain. Objective: Vital Signs Temp Pulse Resp BP Pulse Ox 36.8 C 79 18 149/67 H 97 11/01/16 12:00 11/01/16 12:00 11/01/16 12:00 11/01/16 12:00 11/01/16 12:00 Laboratory Results 11/01/16 06:03 11/01/16 06:03 10/31/16 11/01/16 11/02/16 05:59 05:59 05:59 Intake Total 1495 1909.5 Output Total 1850 2900 650 Balance -355 -990.5 -650 - Time Spent With Patient Time Spent with Patient: greater than 35 minutes Time Spent with Patient: Greater than 35 minutes spent on this patients care, greater than 50% of time spent counseling, educating, and coordinating care regarding the above mentioned plan. - Pending Discharge Pending Discharge Within 24 Hours: Yes Pending Discharge Date: 11/02/16 Pending Discharge Time: 11:00 - Physical Exam Constitutional: chronically ill appearing, other ( Patient is in pain) Eyes: PERRL, anicteric sclera Ears, Nose, Mouth, Throat: moist mucous membranes, hearing normal Cardiovascular: regular rate and rhythym, no murmur, rub, or gallop Respiratory: reduced air movement, inspiratory crackles, bronchial breath sounds , rhonchi Gastrointestinal: normoactive bowel sounds, soft, non-tender abdomen, no palpable masses Skin: other ( stage II sacral decubitus ulceration, POA.) Musculoskeletal: generalized weakness Neurologic: AAOx3, CN II-XII Intact Psychiatric: interacting appropriately ICD10 Worksheet Patient Problems: Problems Problem Status Onset Acute respiratory failure Acute Back pain Acute Uterine cancer Acute Intractable pain Acute Metastatic disease Acute
--- NOTE | 2016-11-01 15:17 | SOAPPROG ---
SOAP Progress Note Assessment/Plan: Assessment: 1. Metastatic endometrial cancer (lung, bones) 2. Pain due to cancer, elliot ANNA lung metastasis 3. 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 - pt met with palliative care today - leaning towards hospice but still not willing to commit to that right now. Subjective: pain somewhat better controlled. Objective: exam unchanged Vital Signs Temp Pulse Resp BP Pulse Ox 36.8 C 79 18 149/67 H 97 11/01/16 12:00 11/01/16 12:00 11/01/16 12:00 11/01/16 12:00 11/01/16 12:00 Laboratory Results 11/01/16 06:03 11/01/16 06:03 10/31/16 11/01/16 11/02/16 05:59 05:59 05:59 Intake Total 1495 1909.5 Output Total 1850 2900 650 Balance -355 -990.5 -650 ICD10 Worksheet Patient Problems: Problems Problem Status Onset Intractable pain Acute Metastatic disease Acute Acute respiratory failure Acute Back pain Acute Uterine cancer Acute
[2016-11-01] MEDS: HYDROmorphONE/DILAUDID 2 MG TAB PO PRN ×2 (16:09→20:52)
[2016-11-01] MEDS: LIDOCAINE 5% 1 EA PATCH TD SCH (16:11)
--- NOTE | 2016-11-01 17:28 | PDPCPN ---
Palliative Care Progress Note Assessment/Plan: Referring provider: Dr Akins Reason for consult: Complex medical decision making Symptom control HPI: Thao Julien is a 61 yo female with PMH met endometrial cancer admitted to the hospital with increasing left shoulder pain and abdominal pain. Bone scan with new bone mets not amenable to radiation. Performance status is poor and unable to at current time receive further oncology treatment. Palliative care consulted for complex medical decision making. Met with Thao, Enrike and brother Chino at the bedside this afternoon. Thao shared that she was dx with cancer in 2004 with removal of her uterus. She opted to not have further oncology treatment at the time as she was caregiving for her parents. She was told her cancer would not return but in 2012 she was found to have metastatic disease. She states at that time she was told her prognosis was 6 months. She understands the incurable nature of her disease but is hoping for more time. She was a very independent person prior to her surgery 09/17/2016 for cord decompression. Since then she has been declining in strength. She has a poor appetite along with nausea and GERD symptoms. She is now requiring a lot of assistance with mobility due to severe pain in her left shoulder and abdominal pain. She is hoping to have good pain control so she can do the things she used to do like moving around without assistance. She understands at her current condition, she is not eligible for continued oncology treatment due to a poor performance status. She is hoping this might improve to seek out further treatments. We spoke of her options including hospice care. She was worried that hospice care might limit her options which we explained was not true. She could get aggressive symptom management and support at home but if she did improve her performance status could sign out of hospice to get continued chemo. She is open to speaking with hospice about her situation and condition. [facility] before going home. She is worried about how her children will respond to her decision as they feel she should continue with aggressive life prolonging measures. We spoke about hospice being support for not only her but also her family. She has experience with hospice care with her parents. 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 Advanced Care Planning: Is patient decisional?: Yes Code Status: Full MD POA: Enrike is MDPOA Plan: She would like to meet with hospice to learn more. Her goals are for aggressive symptom management and understands right now she is not a candidate for further oncology treatment. She would be interested in more treatment in the future if possible. Subjective: pain management is my goal Objective: Social History: to Enrike. Has 2 children both who live out of state. 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 Medication list reviewed ROS: General: fatigue, weakness, weight loss ENT: negative Resp: dyspnea GI: poor appetite, nausea : negative MS: left shoulder and back pain Skin: pressure ulcer Neuro: leg weakness Psych: negative Functional assessment: PPS: 40% Functional status: dependent on ADLs Vital Signs Temp Pulse Resp BP Pulse Ox 36.7 C 80 18 155/72 H 98 11/01/16 15:40 11/01/16 15:40 11/01/16 15:40 11/01/16 15:40 11/01/16 15:40 Laboratory Results 11/01/16 06:03 11/01/16 06:03 10/31/16 11/01/16 11/02/16 05:59 05:59 05:59 Intake Total 1495 1909.5 Output Total 1850 2900 1000 Balance -355 -990.5 -1000 Physical Exam - Physical Exam General Appearance: alert, no apparent distress Respiratory: No respiratory distress, No accessory muscle use Skin: normal color, warm/dry Extremities: pedal edema Neuro/Psych: alert, oriented x 3 ICD10 Worksheet Patient Problems: Problems Problem Status Onset Intractable pain Acute Metastatic disease Acute Palliative care encounter Acute Acute respiratory failure Acute Back pain Acute Uterine cancer Acute - ICD10 Problem Qualifiers (1) Palliative care encounter
[2016-11-01] MEDS: LOSARTAN POTASSIUM 50 MG TAB PO SCH (20:53)
[2016-11-01] MEDS: SENNOSIDES 1 TAB PO SCH (20:54)
[2016-11-01] MEDS ORDERED: PATCH REMOVAL 1 EA PATCH TD SCH (21:00)
[2016-11-01] MEDS: GABAPENTIN 300 MG CAP PO SCH (21:17)
[2016-11-02] MEDS: NS 1,000 ML IV SCH (02:06)
[2016-11-02] MEDS: HYDROmorphONE/DILAUDID 2 MG TAB PO PRN ×3 (05:11→14:02)
[2016-11-02] MEDS: HYDROmorphONE/DILAUDID 6 MG/30 ML PCA IV PRN (05:48)
[2016-11-02] MEDS: HYDROCODONE/APAP 10/325 TAB PO PRN ×2 (06:37→15:08)
[2016-11-02] MEDS: METOPROLOL SUCCINATE XR 100 MG TAB PO SCH (09:14)
[2016-11-02] MEDS: FAMOTIDINE 20 MG TAB PO SCH (09:15)
[2016-11-02] MEDS: PANTOPRAZOLE SODIUM 40 MG TAB PO SCH (09:15)
[2016-11-02] MEDS: DEXAMETHASONE 4 MG/ML VIAL IVP SCH (09:15)
[2016-11-02] MEDS: LIDOCAINE 5% 1 EA PATCH TD SCH (09:16)
[2016-11-02] MEDS: ENOXAPARIN 40 MG/0.4 ML SYR SC SCH (09:16)
[2016-11-02 11:40] VITALS: TEMP 98
--- NOTE | 2016-11-02 11:56 | SOAPPROG ---
SOAP Progress Note Assessment/Plan: Assessment: 1. Metastatic endometrial cancer (lung, bones) 2. Pain due to cancer, elliot ANNA lung metastasis 3. 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 She understands that the hospice team will provide her care, but that she can call us at the cancer center or even come in for an office visit if needed. This is the most appropriate course of care given the nature of her cancer. Subjective: pain about the same. Objective: Vital Signs Temp Pulse Resp BP Pulse Ox 36.6 C 75 18 155/76 H 100 11/02/16 11:39 11/02/16 11:39 11/02/16 11:39 11/02/16 11:39 11/02/16 11:39 Laboratory Results 11/01/16 06:03 11/01/16 06:03 11/01/16 11/02/16 11/03/16 05:59 05:59 05:59 Intake Total 1909.5 2519 Output Total 2900 1350 Balance -990.5 1169 ICD10 Worksheet Patient Problems: Problems Problem Status Onset Intractable pain Acute Metastatic disease Acute Palliative care encounter Acute Acute respiratory failure Acute Back pain Acute Uterine cancer Acute
--- NOTE | 2016-11-02 12:20 | WOCRNPDOC ---
WOCRN Advanced Assessment Note - Skin Integrity Problem, Advanced Assess Right Sacrum Pressure Injury Dressing Type: Allevyn Life, Hydrofera Blue Ready Dressing Description: Clean/Dry, Intact Exudate Amount: Scant Exudate Characteristic(s): Serous Integumentary Issue Intervention: Dressing Changed, Dressing Initialed & Dated Wound Bed Constitution: Granulation Tissue (20%), Smooth Tissue (80%) Wound Edges: Epithelizing, Attached Pressure Injury Stage: Stage 3 Pressure Injury Present on Admit: Yes Skin Integrity Problem Comment: Full thickness wound without any signs of infection. Cleaned with ns and gauze. Skin prep applied shawna wound and hydrofera blue ready cut to fit and placed over wound bed. This was secured with steri strips and an Allevyn. Previous hydrofera blue ready had not changed color and dressing changes can be extended to Q3 days. Patient questions answered.
--- NOTE | 2016-11-02 13:32 | PDIAF ---
- Diagnosis Code Status: Do Not Resuscitate - Medication Management Discharge Medications: Medications to Continue on Transfer Sennosides 2 tab PO HS 10/28/16 [Last Taken 10/27/16] HYDROmorphone HCL/PF [Dilaudid 0.5 mg/0.5 ml Syringe] 0.5 - 1 mg IJ Q1H PRN 10 Days 11/02/16 [Last Taken Unknown] LORazepam [Ativan (*)] 0.5 mg PO Q1H PRN 5 Days 11/02/16 [Last Taken Unknown] Discharge Medications: Refer to the Discharge Home Medication list for PRN reason. - Orders Services needed: Registered Nurse, Certified Electric Power Line Examiner Diet Recommendation: no restrictions on diet Diet Texture: Regular Texture Diet - Follow Up Care Current Providers and Referrals: Swathi Bernal MD [Primary Care Provider] - As per Instructions
[2016-11-02] MEDS: fentaNYL 50 MCG PATCH TD SCH (13:41)
--- NOTE | 2016-11-02 14:31 | GDS ---
[f rep st] DISCHARGE SUMMARY NEW AND ACUTE DIAGNOSES: 1. Endometrial carcinoma status post hysterectomy with metastatic disease. 2. Hypertension. 3. Hypothyroidism. 4. 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 5. Chronic pain secondary to bony metastatic disease. 6. Sacral decubitus ulcer stage II present on admission. CHRONIC DIAGNOSES: 1. Metastatic endometrial carcinoma. 2. Hyperlipidemia. CONSULTATIONS: 1. Oncology. 2. Palliative Care. 3. Hospice Care. 4. Wound Care. PROCEDURES: Nuclear bone scan showing evidence of osseous metastatic disease at the level of L1 and T9 in the left 5th rib. HOSPITAL COURSE: A 61-year-old female with known metastatic endometrial carcinoma and significant pain secondary to bony metastases, who presented for problems of pain. Nuclear bone scan, confirmed the findings of bony metastases and identification of the areas of pain. She was placed on a QUALITY CONTROL TECH RAW MATERIALS pump and brought into good pain control. It should also be noted she has significant pulmonary metastases and has a regular cough and intermittently has hemoptysis. Her pain was brought under moderately good control. There is no further treatment for stage IV endometrial carcinoma. The stage II pressure decubitus which was present on admission was treated with wound care on a daily basis. The patient exhibited significant debility and deconditioning secondary to her metastatic carcinoma. Palliative Care and Hospice consultations indicated that the patient requested hospice care. This discussion occurred over several days with her Enrike and her friend Philippe. Note that there is family that will be coming to [place] in the next 2 weeks. The patient will be moved to Inpatient Hospice. Her pain management will be per Hospice Care. DISCHARGE MEDICATIONS: Dilaudid 1-2 mg IV q.1h p.r.n. pain, Ativan 0.5-1 mg IV q.1h p.r.n. anxiety. All other medications have been discontinued and further medications will be per Hospice Care. PLAN: The patient will be transferred to Inpatient Hospice. Medications and care will be per Hospice. PCP is Dr. Swathi Bernal and Hospice Care. Time: 45 minutes > 50% to agency legal counsel and coordinate care /[id number]/MODL MTDD
[2016-11-02 15:42] VITALS: BP 147/70; PULSE 73; RESP 16; O2SAT 99
== END 2016-11-02 17:19 | disposition hospice, home (50) | DRG 948 ==
LOC: F1N 16:03
PROVIDERS: ADMIT Student in an Organized Health Care Education/Training Program; ATTEND Student in an Organized Health Care Education/Training Program
DX: G89.3 Neoplasm related pain (acute) (chronic) (principal); C79.51 Secondary malignant neoplasm of bone; C78.00 Secondary malignant neoplasm of unspecified lung; Z85.42 Personal history of malignant neoplasm of other parts of uterus; L89.152 Pressure ulcer of sacral region, stage 2; D63.8 Anemia in other chronic diseases classified elsewhere; G62.2 Polyneuropathy due to other toxic agents; T45.1X5A Adverse effect of antineoplastic and immunosuppressive drugs, initial encounter; E78.5 Hyperlipidemia, unspecified; I10 Essential (primary) hypertension; E03.9 Hypothyroidism, unspecified; Z51.5 Encounter for palliative care
CPT/HCPCS: 96374; 97161-GP; 97166-GO; A9503; J1100; J1170; J1650; J2405